=== PATIENT | male | born 1960 | race African-American/Black ===

== ENCOUNTER 2018-08-10 08:04 | Emergency (ER) | payer BC | END 2018-08-10 08:25 | disposition left against medical advice (07) | LOC: MW.ED 08:04 | DX: Z53.21 Procedure and treatment not carried out due to patient leaving prior to being seen by health care provider (principal) | CPT/HCPCS: 99282 ==

== ENCOUNTER 2018-09-27 17:26 | Emergency (ER) | payer BC ==
[2018-09-27] MEDS ORDERED: Sodium Chloride 0.9% 1,000 ML IV ONE (17:39)
[2018-09-27] MEDS ORDERED: cefTRIAXone 1 GM in Premix Bag 1 BAG IV ONE (17:42)
--- NOTE | 2018-09-27 17:42 | EDM.PDOC ---
ED HPI GENERAL MEDICAL PROBLEM - General Chief Complaint: Genitourinary Problem Stated Complaint: BLOOD IN CATH Time Seen by Provider: 09/27/18 17:37 - History of Present Illness INITIAL COMMENTS - FREE TEXT/NARRATIVE: HISTORY AND PHYSICAL: History of present illness: Patient's a 58-year-old black male with history of hypertension and urinary retention who has an indwelling Goldsmith since July is slated for reevaluation and TURP. Today he presents with gross hematuria in his U bag he denies fever chills nausea vomiting or pain he is on aspirin he denies any other antiplatelets or anticoagulants Review of systems: As per history of present illness and below otherwise all systems reviewed and negative. Past medical history: As per history of present illness and as reviewed below otherwise noncontributory. Surgical history: As per history of present illness and as reviewed below otherwise noncontributory. Social history: No reported history of drug or alcohol abuse. Family history: As per history of present illness and as reviewed below otherwise noncontributory. Physical exam: HEENT: Atraumatic, normocephalic, pupils reactive, negative for conjunctival pallor or scleral icterus, mucous membranes moist, throat clear, neck supple, nontender, trachea midline. Lungs: Clear to auscultation, breath sounds equal bilaterally, chest nontender. Heart: S1S2, regular, negative for clicks, rubs, or JVD. Abdomen: Soft, nondistended, nontender. Negative for masses or hepatosplenomegaly. Negative for costovertebral tenderness. Pelvis: Stable nontender. Genitourinary: Goldsmith in place with leg bag with gross hematuria noted Rectal: Deferred. Extremities: Atraumatic, negative for cords or calf pain. Neurovascular unremarkable. Neuro: Awake, alert, oriented. Cranial nerves II through XII unremarkable. Cerebellum unremarkable. Motor and sensory unremarkable throughout. Exam nonfocal. Diagnostics: CBC CMP PT/INR UA urine culture sensitivity Therapeutics: Bladder lavage to clear Rocephin 1 g IV Impression: #1 gross hematuria Definitive disposition and diagnosis as appropriate pending reevaluation and review of above. - Related Data Allergies Allergy/AdvReac Type Severity Reaction Status Date / Time No Known Allergies Allergy Verified 09/27/18 17:35 Home Meds: Home Meds Clopidogrel [Plavix] 75 mg PO DAILY 09/27/18 [History] Metoprolol Tartrate 25 mg PO DAILY 09/27/18 [History] Pantoprazole [ProTONIX] 40 mg PO DAILY 09/27/18 [History] atorvaSTATin [Lipitor] 40 mg PO DAILY 09/27/18 [History] ED ROS GENERAL - Review of Systems Review Of Systems: ROS reveals no pertinent complaints other than HPI. ED EXAM, GENERAL - Physical Exam Exam: See Below (See dictation) Course - Vital Signs Last Recorded V/S: Last Vital Signs Temp 36.8 C 09/27/18 17:37 Pulse 82 09/27/18 17:37 Resp 18 09/27/18 17:37 BP 184/112 H 09/27/18 17:37 Pulse Ox 95 09/27/18 17:37 - Orders/Labs/Meds Orders: Active Orders 24 hr Category Date Time Status CULTURE URINE [RM] Stat Lab 09/27/18 18:30 Received Labs: Laboratory Tests 09/27/18 09/27/18 09/27/18 Range/Units 17:50 17:50 17:50 WBC 7.33 (4.0-11.0) K/uL RBC 4.68 (4.50-5.90) M/uL Hgb 14.6 (13.0-17.0) g/dL Hct 43.7 (38.0-50.0) % MCV 93.4 (80.0-98.0) fL MCH 31.2 (27.0-32.0) pg MCHC 33.4 (31.0-37.0) g/dL RDW Std Deviation 44.0 (28.0-62.0) fl RDW Coeff of Dex 13 (11.0-15.0) % Plt Count 250 (150-400) K/uL MPV 10.70 (7.40-12.00) fL Neut % (Auto) 39.3 L (48.0-80.0) % Lymph % (Auto) 48.4 H (16.0-40.0) % Lares % (Auto) 6.1 (0.0-15.0) % Eos % (Auto) 5.7 (0.0-7.0) % Baso % (Auto) 0.5 (0.0-1.5) % Neut # (Auto) 2.9 (1.4-5.7) K/uL Lymph # (Auto) 3.6 H (0.6-2.4) K/uL [place] # (Auto) 0.5 (0.0-0.8) K/uL Eos # (Auto) 0.4 (0.0-0.7) K/uL Baso # (Auto) 0.0 (0.0-0.1) K/uL Nucleated RBC % 0.0 /100WBC Nucleated RBCs # 0 K/uL INR 1.00 Sodium 143 (136-148) mmol/L Potassium 3.6 (3.5-5.1) mmol/L Chloride 107 (98-107) mmol/L Carbon Dioxide 26.1 (21.0-32.0) mmol/L BUN 12 (7.0-18.0) mg/dL Creatinine 1.2 (0.8-1.3) mg/dL Est Cr Clr Drug Dosing 69.72 mL/min Estimated GFR (MDRD) > 60.0 ml/min Glucose 121 H (74-106) mg/dL Calcium 9.1 (8.5-10.1) mg/dL Total Bilirubin 0.6 (0.2-1.0) mg/dL AST 13 L (15-37) IU/L ALT 15 (14-63) IU/L Alkaline Phosphatase 131 H (46-116) U/L Total Protein 8.0 (6.4-8.2) g/dL Albumin 3.7 (3.4-5.0) g/dL Globulin 4.3 H (2.6-4.0) g/dL Albumin/Globulin Ratio 0.9 (0.9-1.6) Urine Color Urine Appearance Urine pH (5.0-8.0) Ur Specific [place] (1.001-1.035) Urine Protein (NEGATIVE) mg/dL Urine Glucose (UA) (NEGATIVE) mg/dL Urine Ketones (NEGATIVE) mg/dL Urine Occult Blood (NEGATIVE) Urine Nitrite (NEGATIVE) Urine Bilirubin (NEGATIVE) Urine Urobilinogen (<2.0) EU/dL Ur Leukocyte Esterase (NEGATIVE) Urine RBC (0-2/HPF) Urine WBC (0-5/HPF) Ur Epithelial Cells (NONE-FEW) Urine Bacteria (NEGATIVE) 09/27/18 Range/Units 18:30 WBC (4.0-11.0) K/uL RBC (4.50-5.90) M/uL Hgb (13.0-17.0) g/dL Hct (38.0-50.0) % MCV (80.0-98.0) fL MCH (27.0-32.0) pg MCHC (31.0-37.0) g/dL RDW Std Deviation (28.0-62.0) fl RDW Coeff of Dex (11.0-15.0) % Plt Count (150-400) K/uL MPV (7.40-12.00) fL Neut % (Auto) (48.0-80.0) % Lymph % (Auto) (16.0-40.0) % [place] % (Auto) (0.0-15.0) % Eos % (Auto) (0.0-7.0) % Baso % (Auto) (0.0-1.5) % Neut # (Auto) (1.4-5.7) K/uL Lymph # (Auto) (0.6-2.4) K/uL [place] # (Auto) (0.0-0.8) K/uL Eos # (Auto) (0.0-0.7) K/uL Baso # (Auto) (0.0-0.1) K/uL Nucleated RBC % /100WBC Nucleated RBCs # K/uL INR Sodium (136-148) mmol/L Potassium (3.5-5.1) mmol/L Chloride (98-107) mmol/L Carbon Dioxide (21.0-32.0) mmol/L BUN (7.0-18.0) mg/dL Creatinine (0.8-1.3) mg/dL Est Cr Clr Drug Dosing mL/min Estimated GFR (MDRD) ml/min Glucose (74-106) mg/dL Calcium (8.5-10.1) mg/dL Total Bilirubin (0.2-1.0) mg/dL AST (15-37) IU/L ALT (14-63) IU/L Alkaline Phosphatase (46-116) U/L Total Protein (6.4-8.2) g/dL Albumin (3.4-5.0) g/dL Globulin (2.6-4.0) g/dL Albumin/Globulin Ratio (0.9-1.6) Urine Color RED Urine Appearance CLOUDY Urine pH 6.5 (5.0-8.0) Ur Specific [place] 1.025 (1.001-1.035) Urine Protein 100 H (NEGATIVE) mg/dL Urine Glucose (UA) NEGATIVE (NEGATIVE) mg/dL Urine Ketones TRACE H (NEGATIVE) mg/dL Urine Occult Blood LARGE H (NEGATIVE) Urine Nitrite POSITIVE H (NEGATIVE) Urine Bilirubin NEGATIVE (NEGATIVE) Urine Urobilinogen 1.0 (<2.0) EU/dL Ur Leukocyte Esterase SMALL H (NEGATIVE) Urine RBC TOO NUMEROUS TO CT (0-2/HPF) Urine WBC 12-15 (0-5/HPF) Ur Epithelial Cells OCCASIONAL (NONE-FEW) Urine Bacteria 1+ H (NEGATIVE) Meds: Medications Discontinued Medications Generic Name Dose Route Start Last Admin Trade Name Freq PRN Reason Stop Dose Admin Sodium Chloride 1,000 mls @ 999 mls/hr 09/27/18 17:39 09/27/18 18:20 Normal Saline IV 09/27/18 18:39 999 mls/hr STAT ONE Administration Ceftriaxone Sodium/Dextrose 1 50 mls @ 100 mls/hr 09/27/18 17:42 09/27/18 18: 31 gm/ Premix IV 09/27/18 18:11 100 mls/hr ONETIME ONE Administration Departure - Departure Time of Disposition: 18:55 Disposition: Home, Self-Care 01 Condition: Good Clinical Impression: UTI, Urinary tract infectious disease - Discharge Information Referrals: PCP,Unknown [Primary Care Provider] - Forms: ED Department Discharge Additional Instructions: The following information is given to patients seen in the emergency department who are being discharged to home. This information is to outline your options for follow-up care. We provide all patients seen in our emergency department with a follow-up referral. The need for follow-up, as well as the timing and circumstances, are variable depending upon the specifics of your emergency department visit. If you don't have a primary care physician on staff, we will provide you with a referral. We always advise you to contact your personal physician following an emergency department visit to inform them of the circumstance of the visit and for follow-up with them and/or the need for any referrals to a consulting specialist. The emergency department will also refer you to a specialist when appropriate. This referral assures that you have the opportunity for followup care with a specialist. All of these measure are taken in an effort to provide you with optimal care, which includes your followup. Under all circumstances we always encourage you to contact your private physician who remains a resource for coordinating your care. When calling for followup care, please make the office aware that this follow-up is from your recent emergency room visit. If for any reason you are refused follow-up, please contact the [facility] emergency department at and asked to speak to the emergency department charge nurse. Goldsmith catheter leg bag care as directed Keflex as prescribed follow-up with urology call to schedule follow-up Saturday return as needed as discussed - My Orders Last 24 Hours: My Active Orders 09/27/18 18:30 CULTURE URINE [RM] Stat - Assessment/Plan Last 24 Hours: My Active Orders 09/27/18 18:30 CULTURE URINE [RM] Stat
[2018-09-27 18:20] LABS: CHLORIDE,CL 107 mmol/L (98-107); SODIUM,NA 143 mmol/L (136-148)
== END 2018-09-27 19:40 | disposition home or self-care (01) ==
LOC: MW.ED 17:26
DX: N39.0 Urinary tract infection, site not specified (principal); R31.0 Gross hematuria; Z79.899 Other long term (current) drug therapy
CPT/HCPCS: 36415; 80053; 81001; 85025; 85610; 87086; 96361; 96365; 99283; J0696; J7040; 87088; 87186

== ENCOUNTER 2018-11-03 20:58 | Inpatient (IN) | payer BC ==
[2018-11-03] MEDS ORDERED: Ketorolac 30 MG/ML SDV IVPUSH ONE (21:37)
[2018-11-03] MEDS ORDERED: Ondansetron 4 MG/2 ML SDV IVPUSH ONE (21:37)
[2018-11-03] MEDS ORDERED: Sodium Chloride 0.9% 1,000 ML IV ONE (21:37)
--- NOTE | 2018-11-03 21:38 | EDM.PDOC ---
<Gianni Gardner - Last Filed: 11/04/18 00:54> ED HPI GENERAL MEDICAL PROBLEM - General Chief Complaint: Abdominal Pain Stated Complaint: STOMACH PAIN Time Seen by Provider: 11/03/18 21:38 - History of Present Illness INITIAL COMMENTS - FREE TEXT/NARRATIVE: I've seen and examined the patient Patient does have some abdominal tenderness mildly protuberant Following CT and lab patient does have urinary tract infection and rectal bowel obstruction Plan is for admission IV fluids Reglan and Cipro - Related Data Allergies Allergy/AdvReac Type Severity Reaction Status Date / Time No Known Allergies Allergy Verified 11/03/18 21:33 Home Meds: Home Meds Metoprolol Tartrate 25 mg PO DAILY 09/27/18 [History] Pantoprazole [ProTONIX] 40 mg PO DAILY 09/27/18 [History] atorvaSTATin [Lipitor] 40 mg PO DAILY 09/27/18 [History] Ledipasvir/Sofosbuvir [Harvoni 90-400 mg Tablet] 90 - 400 mg PO DAILY 11/03/18 [ History] Lisinopril 10 mg PO DAILY 11/03/18 [History] ED ROS GENERAL - Review of Systems Review Of Systems: See Below ED EXAM, GI/ABD - Physical Exam Exam: See Below Course - Vital Signs Last Recorded V/S: Last Vital Signs Temp 98.7 F 11/04/18 07:30 Pulse 76 11/04/18 07:30 Resp 18 11/04/18 07:30 BP 157/89 H 11/04/18 07:30 Pulse Ox 95 11/04/18 07:30 - Orders/Labs/Meds Orders: Active Orders 24 hr Category Date Time Status CULTURE URINE [RM] Stat Lab 11/03/18 22:50 Received Ciprofloxacin in D5W [Cipro in D5W 400 MG/200 ML] 400 Med 11/04/18 01:00 Active mg Premix Bag 1 bag IV Q12H Medication Orders Hydromorphone HCl (Dilaudid) 1 mg IVPUSH Q2H PRN PRN Reason: Pain (severe 7-10) Last Admin: 11/04/18 06:25 Dose: 1 mg Ciprofloxacin/Dextrose 400 mg/ (Premix) 200 mls @ 200 mls/hr IV Q12H ABBIE Last Admin: 11/04/18 01:04 Dose: 200 mls/hr Sodium Chloride (Normal Saline) 1,000 mls @ 125 mls/hr IV ASDIRECTED ABBIE Last Admin: 11/04/18 08:45 Dose: 125 mls/hr Ondansetron HCl (Zofran) 4 mg IVPUSH Q3H PRN PRN Reason: Nausea/Vomiting Last Admin: 11/04/18 06:17 Dose: 4 mg Admin: 11/04/18 03:33 Dose: 4 mg Promethazine HCl (Phenergan) 25 mg IM Q6H PRN PRN Reason: Nausea/Vomiting Last Admin: 11/04/18 08:00 Dose: 25 mg Labs: Laboratory Tests 11/03/18 11/03/18 11/03/18 Range/Units 22:10 22:10 22:50 WBC 9.34 (4.0-11.0) K/uL RBC 4.59 (4.50-5.90) M/uL Hgb 14.7 (13.0-17.0) g/dL Hct 43.7 (38.0-50.0) % MCV 95.2 (80.0-98.0) fL MCH 32.0 (27.0-32.0) pg MCHC 33.6 (31.0-37.0) g/dL RDW Std Deviation 45.5 (28.0-62.0) fl RDW Coeff of Dex 13 (11.0-15.0) % Plt Count 275 (150-400) K/uL MPV 10.80 (7.40-12.00) fL Neut % (Auto) 58.8 (48.0-80.0) % Lymph % (Auto) 27.5 (16.0-40.0) % [place] % (Auto) 8.7 (0.0-15.0) % Eos % (Auto) 4.5 (0.0-7.0) % Baso % (Auto) 0.5 (0.0-1.5) % Neut # (Auto) 5.5 (1.4-5.7) K/uL Lymph # (Auto) 2.6 H (0.6-2.4) K/uL [place] # (Auto) 0.8 (0.0-0.8) K/uL Eos # (Auto) 0.4 (0.0-0.7) K/uL Baso # (Auto) 0.1 (0.0-0.1) K/uL Nucleated RBC % 0.0 /100WBC Nucleated RBCs # 0 K/uL Sodium 144 (136-148) mmol/L Potassium 4.2 (3.5-5.1) mmol/L Chloride 107 (98-107) mmol/L Carbon Dioxide 30.8 (21.0-32.0) mmol/L BUN 15 (7.0-18.0) mg/dL Creatinine 1.3 (0.8-1.3) mg/dL Est Cr Clr Drug Dosing 62.39 mL/min Estimated GFR (MDRD) > 60.0 ml/min Glucose 93 (74-106) mg/dL Calcium 8.9 (8.5-10.1) mg/dL Total Bilirubin 0.8 (0.2-1.0) mg/dL AST 22 (15-37) IU/L ALT 23 (14-63) IU/L Alkaline Phosphatase 110 (46-116) U/L Total Protein 7.7 (6.4-8.2) g/dL Albumin 3.7 (3.4-5.0) g/dL Globulin 4.0 (2.6-4.0) g/dL Albumin/Globulin Ratio 0.9 (0.9-1.6) Lipase 92 (73-393) U/L Urine Color YELLOW Urine Appearance SLT CLOUDY Urine pH 8.0 (5.0-8.0) Ur Specific [place] 1.015 (1.001-1.035) Urine Protein TRACE H (NEGATIVE) mg/dL Urine Glucose (UA) NEGATIVE (NEGATIVE) mg/dL Urine Ketones NEGATIVE (NEGATIVE) mg/dL Urine Occult Blood LARGE H (NEGATIVE) Urine Nitrite NEGATIVE (NEGATIVE) Urine Bilirubin NEGATIVE (NEGATIVE) Urine Urobilinogen 0.2 (<2.0) EU/dL Ur Leukocyte Esterase LARGE H (NEGATIVE) Urine RBC 45-50 (0-2/HPF) Urine WBC 50-60 (0-5/HPF) Ur Epithelial Cells FEW (NONE-FEW) Urine Bacteria 1+ H (NEGATIVE) Meds: Medications Generic Name Dose Route Start Last Admin Trade Name Freq PRN Reason Stop Dose Admin Hydromorphone HCl 1 mg 11/04/18 06:13 11/04/18 06:25 Dilaudid IVPUSH 1 mg Q2H PRN Administration Pain (severe 7-10) Ciprofloxacin/Dextrose 400 mg/ 200 mls @ 200 mls/hr 11/04/18 01:00 11/04/18 01:04 Premix IV 200 mls/hr Q12H ABBIE Administration Sodium Chloride 1,000 mls @ 125 mls/hr 11/04/18 02:30 11/04/18 08:45 Normal Saline IV 125 mls/hr ASDIRECTED ABBIE Administration Ondansetron HCl 4 mg 11/04/18 02:21 11/04/18 06:17 Zofran IVPUSH 4 mg Q3H PRN Administration Nausea/Vomiting Promethazine HCl 25 mg 11/04/18 06:14 11/04/18 08:00 Phenergan IM 25 mg Q6H PRN Administration Nausea/Vomiting Discontinued Medications Generic Name Dose Route Start Last Admin Trade Name Freq PRN Reason Stop Dose Admin Hydromorphone HCl 1 mg 11/03/18 21:40 11/03/18 22:13 Dilaudid IVPUSH 11/03/18 21:41 1 mg ONETIME ONE Administration Hydromorphone HCl 1 mg 11/04/18 01:08 11/04/18 01:15 Dilaudid IVPUSH 11/04/18 01:09 1 mg ONETIME ONE Administration Hydromorphone HCl 1 mg 11/04/18 02:21 11/04/18 03:31 Dilaudid IVPUSH 1 mg Q3H PRN Administration Pain (severe 7-10) Sodium Chloride 1,000 mls @ 999 mls/hr 11/03/18 21:37 11/03/18 22:13 Normal Saline IV 11/03/18 22:37 999 mls/hr STAT ONE Administration Sodium Chloride 1,000 mls @ 125 mls/hr 11/04/18 01:00 11/04/18 01:05 Normal Saline IV 125 mls/hr STAT ABBIE Administration Iopamidol 100 ml 11/03/18 23:47 11/03/18 23:48 Isovue Multipack-370 (76%) IVPUSH 11/03/18 23:48 100 ml ONETIME ONE Administration Ketorolac Tromethamine 30 mg 11/03/18 21:37 11/03/18 22:13 Toradol IVPUSH 11/03/18 21:38 30 mg ONETIME ONE Administration Metoclopramide HCl 10 mg 11/04/18 00:55 11/04/18 01:05 Reglan IV 11/04/18 00:56 10 mg ONETIME ONE Administration Ondansetron HCl 4 mg 11/03/18 21:37 11/03/18 22:13 Zofran IVPUSH 11/03/18 21:38 4 mg ONETIME ONE Administration Departure - Departure Time of Disposition: 00:54 Disposition: Refer to Observation Condition: Fair Clinical Impression: Bowel obstruction Qualifiers: Intestinal obstruction type: unspecified Intestinal obstruction extent: unspecified extent Qualified Code(s): K56.609 - Unspecified intestinal obstruction, unspecified as to partial versus complete obstruction UTI (urinary tract infection) Qualifiers: Urinary tract infection type: site unspecified Hematuria presence: without hematuria Qualified Code(s): N39.0 - Urinary tract infection, site not specified - Discharge Information - My Orders Last 24 Hours: My Active Orders 11/03/18 22:50 CULTURE URINE [RM] Stat - Assessment/Plan Last 24 Hours: My Active Orders 11/03/18 22:50 CULTURE URINE [RM] Stat <Elier Petersen E - Last Filed: 11/04/18 11:10> ED HPI GENERAL MEDICAL PROBLEM - General Source of Information: Reports: Patient History Limitations: Reports: No Limitations - History of Present Illness INITIAL COMMENTS - FREE TEXT/NARRATIVE: HISTORY AND PHYSICAL: History of present illness: Patient is a 58-year-old male who presents to the emergency room with complaints of generalized abdominal pain and nausea since 1730. He describes the pain as sharp and "comes in waves". He complains of nausea but no vomiting. Does not recall eating anything new or unusual. Patient denies any fever, chills, headache, change in vision, syncope or near syncope. Denies any chest pain, back pain, shortness of breath or cough. Denies any diarrhea, constipation or dysuria. Has not noted any blood in urine or stool. Patient has been eating and drinking appropriately. Patient has a history of appendectomy and hernia repair. Review of systems: As per history of present illness and below otherwise all systems reviewed and negative. Past medical history: As per history of present illness and as reviewed below otherwise noncontributory. Surgical history: As per history of present illness and as reviewed below otherwise noncontributory. Social history: See social history for further information Family history: As per history of present illness and as reviewed below otherwise noncontributory. Physical exam: General: Well-developed and well-nourished 58-year-old -[place] male. Alert and oriented. Nontoxic appearing and in no acute distress. HEENT: Atraumatic, normocephalic, pupils equal and reactive bilaterally, negative for conjunctival pallor or scleral icterus, mucous membranes moist, TMs normal bilaterally, throat clear, neck supple, nontender, trachea midline. No drooling or trismus noted. No meningeal signs. No hot potato voice noted. Lungs: Clear to auscultation, breath sounds equal bilaterally, chest nontender. Heart: S1S2, regular rate and rhythm without overt murmur Abdomen: Soft, nondistended, generalized abdominal pain in all 4 quadrants. Negative for masses. Negative for costovertebral tenderness. Pelvis: Stable nontender. Genitourinary: Deferred. Rectal: Deferred. Skin: Intact, warm, dry. No lesions or rashes noted. Extremities: Atraumatic, moves all extremities per self without difficulty or deficits, negative for cords or calf pain. Neurovascular unremarkable. Neuro: Awake, alert, oriented. Cranial nerves II through XII unremarkable. Cerebellum unremarkable. Motor and sensory unremarkable throughout. Exam nonfocal. Notes: Patient is agreeable to lab work and imaging. We'll give him fluids and pain medications for comfort. Dr Gardner was informed of this patient; will follow up on results. Diagnostics: CBC, CMP, UA, CT abdomen and pelvis, lipase, EKG Therapeutics: IV fluid, Zofran, Toradol, Dilaudid Definitive disposition and diagnosis as appropriate pending reevaluation and review of above. Middle Abdomen Pain Score (Numeric/FACES): 10 Past Medical History HEENT History: Reports: Impaired Vision Cardiovascular History: Reports: Hypertension, Stents, Other (See Below) Other Cardiovascular History: GA Gastrointestinal History: Reports: None Genitourinary History: Reports: Retention, Urinary - Infectious Disease History Infectious Disease History: Reports: Hepatitis C, Measles - Past Surgical History HEENT Surgical History: Reports: None GI Surgical History: Reports: Appendectomy, Hernia Repair/Other Male Surgical History: Reports: None Social & Family History - Family History Family Medical History: Noncontributory - Caffeine Use Caffeine Use: Reports: None Course - Orders/Labs/Meds Labs: Laboratory Tests 11/03/18 11/03/18 11/03/18 Range/Units 22:10 22:10 22:50 WBC 9.34 (4.0-11.0) K/uL RBC 4.59 (4.50-5.90) M/uL Hgb 14.7 (13.0-17.0) g/dL Hct 43.7 (38.0-50.0) % MCV 95.2 (80.0-98.0) fL MCH 32.0 (27.0-32.0) pg MCHC 33.6 (31.0-37.0) g/dL RDW Std Deviation 45.5 (28.0-62.0) fl RDW Coeff of Dex 13 (11.0-15.0) % Plt Count 275 (150-400) K/uL MPV 10.80 (7.40-12.00) fL Neut % (Auto) 58.8 (48.0-80.0) % Lymph % (Auto) 27.5 (16.0-40.0) % [place] % (Auto) 8.7 (0.0-15.0) % Eos % (Auto) 4.5 (0.0-7.0) % Baso % (Auto) 0.5 (0.0-1.5) % Neut # (Auto) 5.5 (1.4-5.7) K/uL Lymph # (Auto) 2.6 H (0.6-2.4) K/uL [place] # (Auto) 0.8 (0.0-0.8) K/uL Eos # (Auto) 0.4 (0.0-0.7) K/uL Baso # (Auto) 0.1 (0.0-0.1) K/uL Nucleated RBC % 0.0 /100WBC Nucleated RBCs # 0 K/uL Sodium 144 (136-148) mmol/L Potassium 4.2 (3.5-5.1) mmol/L Chloride 107 (98-107) mmol/L Carbon Dioxide 30.8 (21.0-32.0) mmol/L BUN 15 (7.0-18.0) mg/dL Creatinine 1.3 (0.8-1.3) mg/dL Est Cr Clr Drug Dosing 62.39 mL/min Estimated GFR (MDRD) > 60.0 ml/min Glucose 93 (74-106) mg/dL Calcium 8.9 (8.5-10.1) mg/dL Total Bilirubin 0.8 (0.2-1.0) mg/dL AST 22 (15-37) IU/L ALT 23 (14-63) IU/L Alkaline Phosphatase 110 (46-116) U/L Total Protein 7.7 (6.4-8.2) g/dL Albumin 3.7 (3.4-5.0) g/dL Globulin 4.0 (2.6-4.0) g/dL Albumin/Globulin Ratio 0.9 (0.9-1.6) Lipase 92 (73-393) U/L Urine Color YELLOW Urine Appearance SLT CLOUDY Urine pH 8.0 (5.0-8.0) Ur Specific [place] 1.015 (1.001-1.035) Urine Protein TRACE H (NEGATIVE) mg/dL Urine Glucose (UA) NEGATIVE (NEGATIVE) mg/dL Urine Ketones NEGATIVE (NEGATIVE) mg/dL Urine Occult Blood LARGE H (NEGATIVE) Urine Nitrite NEGATIVE (NEGATIVE) Urine Bilirubin NEGATIVE (NEGATIVE) Urine Urobilinogen 0.2 (<2.0) EU/dL Ur Leukocyte Esterase LARGE H (NEGATIVE) Urine RBC 45-50 (0-2/HPF) Urine WBC 50-60 (0-5/HPF) Ur Epithelial Cells FEW (NONE-FEW) Urine Bacteria 1+ H (NEGATIVE)
[2018-11-03] MEDS ORDERED: HYDROmorphone 1 MG/ML Syringe IVPUSH ONE (21:40)
[2018-11-03 22:40] LABS: CHLORIDE,CL 107 mmol/L (98-107); SODIUM,NA 144 mmol/L (136-148)
[2018-11-03] MEDS ORDERED: Iopamidol 755 MG/ML 500 ML Multipack Bottle IVPUSH ONE (23:47)
--- NOTE | 2018-11-04 00:51 | CT ---
INDICATION: Left lower abdominal pain TECHNIQUE: CT abdomen and pelvis acquired with IV contrast. 100 mL of Isovue 370 administered. COMPARISON: None available FINDINGS: Lower chest: Minor subsegmental atelectasis. Liver: Multiple small hepatic cysts and subcentimeter low-density lesions which are too small to characterize and may represent cysts as well. Spleen: Unremarkable. Pancreas: Unremarkable. Gallbladder and bile ducts: Slight stranding along the gallbladder wall which is not distended. A punctate calcification on image 35 of series 201 which may be related to the gallbladder neck or proximal cystic duct. Adrenal glands: Mild left adrenal thickening. Kidneys: No hydronephrosis. A subcentimeter left renal low-density lesion, statistically a cyst. GI tract: Borderline dilated fluid-filled small bowel segments with a transition point in the right abdomen on image 60. Wall thickening in a few right abdominal small bowel segments distal to the transition point, with associated mild mesenteric edema. Post appendectomy changes. Sigmoid diverticulosis without diverticulitis. Vascular structures: Arthrosclerotic changes. Lymph nodes: Several borderline and shotty subcentimeter periportal and portacaval lymph nodes, nonspecific. Miscellaneous: Small perihepatic, mesenteric and pelvic free fluid. No free air. Several small fat containing ventral hernias. A short segment of decompressed small bowel extending into a ventral hernia on image 89, without associated obstruction. An ovoid fat attenuation area in the right anterolateral lower abdominal wall musculature compatible with an intermuscular lipoma. Pelvic Organs: A Goldsmith catheter within the decompressed urinary bladder. Diffuse bladder wall thickening. A prominent prostate. Bones: A sclerotic lesion in the right ilium, small sclerotic foci in the posterior left ileum, and a sclerotic lesion in the right T10 pedicle, nonspecific. IMPRESSION: Findings consistent with partial or early small bowel obstruction with a transition point in the right abdomen. Wall thickening of a few small bowel segments distal to the transition point consistent with a nonspecific segmental enteritis. Slight stranding along the gallbladder wall with a punctate calcification in the region of the gallbladder neck or proximal cystic duct, although the gallbladder is not significantly distended. Correlate clinically and with sonography. Diffuse bladder wall thickening. Correlate with urinalysis for cystitis and recommend further urological evaluation. A prominent prostate. Small abdominal and pelvic free fluid. Several fat containing ventral hernias. A small bowel segment within a ventral hernia without associated obstruction. Several osseous sclerotic foci, nonspecific. Consider further evaluation with bone scan. Dictated by Josue Peng MD @ 11/04/2018 12:48:11 AM Please note that all CT scans at this facility use dose modulation, iterative reconstruction, and/or weight-based dosing when appropriate to reduce radiation dose to as low as reasonably achievable. Dictated by: Josue Peng MD @ 11/04/2018 00:50:09 (Electronically Signed)
[2018-11-04] MEDS ORDERED: Metoclopramide 10 MG/2 ML SDV IV ONE (00:55)
[2018-11-04] MEDS ORDERED: Sodium Chloride 0.9% 1,000 ML IV SCH (01:00)
[2018-11-04] MEDS: Ciprofloxacin in D5W 400 MG in Premix Bag 1 BAG IV SCH ×4 (01:04→12:45)
[2018-11-04] MEDS ORDERED: HYDROmorphone 1 MG/ML Syringe IVPUSH ONE (01:08)
[2018-11-04] MEDS ORDERED: HYDROmorphone 1 MG/ML Syringe IVPUSH PRN (02:21)
[2018-11-04] MEDS: Ondansetron 4 MG/2 ML SDV IVPUSH PRN ×2 (03:33→06:17)
[2018-11-04] MEDS: HYDROmorphone 1 MG/ML Syringe IVPUSH PRN ×2 (06:25→20:58)
[2018-11-04] MEDS: Promethazine 25 MG/ML SDV IM PRN (08:00)
[2018-11-04] MEDS: Sodium Chloride 0.9% 1,000 ML IV SCH ×2 (08:45→17:00)
[2018-11-04 09:48] LABS: CHLORIDE,CL 109 mmol/L (98-107); SODIUM,NA 147 mmol/L (136-148)
--- NOTE | 2018-11-04 09:59 | PCM.CONS ---
<Lili Byrne - Last Filed: 11/04/18 10:15> H&P History of Present Illness - General Date of Service: 11/04/18 Admit Problem/Dx: Admission Diagnosis/Problem Admission Diagnosis/Problem Partial bowel obstruction - History of Present Illness Initial Comments - Free Text/Narative: The patient is a 58 year old male with past medical history of HTN, CAD, urinary retention, and hepatitis C, who presented to the ER last night with abdominal pain and nausea. The pain started around 5 pm last night. He describes the pain as tightness in his mid abdomen that is intermittent and "comes in waves". He reports his last bowel movement was yesterday at 330 pm. He denies black/bloody stool. Since admission he reports he has not had a bowel movement or passed gas. This morning he developed vomiting and a NG tube was placed by the medical team. The patient has a large vertical midline scar on his abdomen which he states "Its from when they removed my appendix and had to take some of my intestines because my appendix was bleeding too much". He is also currently undergoing treatment for hepatitis C. Workup show far has not showed any leukocytosis or transaminitis. He has been afebrile. Urine did show signs of infection. He does have a indwelling catheter due to "prostate problems". CT of ab/pelvis showed partial/early SBO with transition point, wall thickening in a few areas of small bowel segments distal to transition point consistent with nonspecific enteritis. It also round stranding along the gallbladder with punctate calcifications, diffuse bladder wall thickening, and several fat containing ventral hernias with some bowel in the hernia. Middle Abdomen Pain Score (Numeric/FACES): 0 - Related Data Allergies/Adverse Reactions: Allergies Allergy/AdvReac Type Severity Reaction Status Date / Time No Known Allergies Allergy Verified 11/03/18 21:33 Home Medications: Home Meds Metoprolol Tartrate 25 mg PO DAILY 09/27/18 [History] Pantoprazole [ProTONIX] 40 mg PO DAILY 09/27/18 [History] atorvaSTATin [Lipitor] 40 mg PO DAILY 09/27/18 [History] Ledipasvir/Sofosbuvir [Harvoni 90-400 mg Tablet] 90 - 400 mg PO DAILY 11/03/18 [ History] Lisinopril 10 mg PO DAILY 11/03/18 [History] Past Medical History HEENT History: Reports: Impaired Vision Cardiovascular History: Reports: CAD, Hypertension, Stents, Other (See Below) Other Cardiovascular History: [place] Respiratory History: Reports: None Gastrointestinal History: Reports: None Genitourinary History: Reports: Retention, Urinary Musculoskeletal History: Reports: None Neurological History: Reports: None Psychiatric History: Reports: None Endocrine/Metabolic History: Reports: None Hematologic History: Reports: None Oncologic (Cancer) History: Reports: None - Infectious Disease History Infectious Disease History: Reports: Chicken Pox, Hepatitis C, Measles - Past Surgical History HEENT Surgical History: Reports: None GI Surgical History: Reports: Appendectomy, Hernia Repair/Other Male Surgical History: Reports: None Social & Family History - Family History Family Medical History: Noncontributory - Tobacco Use Smoking Status *Q: Light Tobacco Smoker Years of Tobacco use: 41 Packs/Tins Daily: 0.5 Second Hand Smoke Exposure: Yes - Caffeine Use Caffeine Use: Reports: Coffee, Soda, Tea - Recreational Drug Use Recreational Drug Use: No H&P Review of Systems - Review of Systems: Review Of Systems: See Below General: Reports: No Symptoms HEENT: Reports: No Symptoms Pulmonary: Reports: No Symptoms Cardiovascular: Reports: No Symptoms Gastrointestinal: Reports: Abdominal Pain, Nausea, Vomiting. Denies: Black Stool, Bloody Stool Musculoskeletal: Reports: No Symptoms Skin: Reports: No Symptoms Psychiatric: Reports: No Symptoms Neurological: Reports: No Symptoms Hematologic/Lymphatic: Reports: No Symptoms Immunologic: Reports: No Symptoms Exam - Exam Exam: See Below - Vital Signs Vital Signs: Last Vital Signs Temp 98.7 F 11/04/18 07:30 Pulse 76 11/04/18 07:30 Resp 18 11/04/18 07:30 BP 157/89 H 11/04/18 07:30 Pulse Ox 95 11/04/18 07:30 Weight: 101.406 kg - Exam General: Alert, Oriented, Cooperative HEENT: Conjunctiva Clear, EOMI, Posterior Pharynx Clear, Pupils Equal, Pupils Reactive Lungs: Clear to Auscultation, Normal Respiratory Effort Cardiovascular: Regular Rate, Regular Rhythm GI/Abdominal Exam: Non-Tender, Distended, Other. No: Guarding, Rigid, Rebound ( vertical midline scar with hernia at umbilicus) Extremities: No Pedal Edema Skin: Warm, Dry, Intact Neuro Extensive - Mental Status: Alert, Oriented x3 Psychiatric: Alert, Normal Affect, Normal Mood - Patient Data Lab Results Last 24 hrs: Laboratory Results - last 24 hr 11/03/18 11/03/18 11/03/18 Range/Units 22:10 22:10 22:50 WBC 9.34 (4.0-11.0) K/uL RBC 4.59 (4.50-5.90) M/uL Hgb 14.7 (13.0-17.0) g/dL Hct 43.7 (38.0-50.0) % MCV 95.2 (80.0-98.0) fL MCH 32.0 (27.0-32.0) pg MCHC 33.6 (31.0-37.0) g/dL RDW Std Deviation 45.5 (28.0-62.0) fl RDW Coeff of Dex 13 (11.0-15.0) % Plt Count 275 (150-400) K/uL MPV 10.80 (7.40-12.00) fL Neut % (Auto) 58.8 (48.0-80.0) % Lymph % (Auto) 27.5 (16.0-40.0) % Clark % (Auto) 8.7 (0.0-15.0) % Eos % (Auto) 4.5 (0.0-7.0) % Baso % (Auto) 0.5 (0.0-1.5) % Neut # (Auto) 5.5 (1.4-5.7) K/uL Lymph # (Auto) 2.6 H (0.6-2.4) K/uL Clark # (Auto) 0.8 (0.0-0.8) K/uL Eos # (Auto) 0.4 (0.0-0.7) K/uL Baso # (Auto) 0.1 (0.0-0.1) K/uL Nucleated RBC % 0.0 /100WBC Nucleated RBCs # 0 K/uL Sodium 144 (136-148) mmol/L Potassium 4.2 (3.5-5.1) mmol/L Chloride 107 (98-107) mmol/L Carbon Dioxide 30.8 (21.0-32.0) mmol/L BUN 15 (7.0-18.0) mg/dL Creatinine 1.3 (0.8-1.3) mg/dL Est Cr Clr Drug Dosing 62.39 mL/min Estimated GFR (MDRD) > 60.0 ml/min Glucose 93 (74-106) mg/dL Calcium 8.9 (8.5-10.1) mg/dL Total Bilirubin 0.8 (0.2-1.0) mg/dL AST 22 (15-37) IU/L ALT 23 (14-63) IU/L Alkaline Phosphatase 110 (46-116) U/L Total Protein 7.7 (6.4-8.2) g/dL Albumin 3.7 (3.4-5.0) g/dL Globulin 4.0 (2.6-4.0) g/dL Albumin/Globulin Ratio 0.9 (0.9-1.6) Lipase 92 (73-393) U/L Urine Color YELLOW Urine Appearance SLT CLOUDY Urine pH 8.0 (5.0-8.0) Ur Specific [place] 1.015 (1.001-1.035) Urine Protein TRACE H (NEGATIVE) mg/dL Urine Glucose (UA) NEGATIVE (NEGATIVE) mg/dL Urine Ketones NEGATIVE (NEGATIVE) mg/dL Urine Occult Blood LARGE H (NEGATIVE) Urine Nitrite NEGATIVE (NEGATIVE) Urine Bilirubin NEGATIVE (NEGATIVE) Urine Urobilinogen 0.2 (<2.0) EU/dL Ur Leukocyte Esterase LARGE H (NEGATIVE) Urine RBC 45-50 (0-2/HPF) Urine WBC 50-60 (0-5/HPF) Ur Epithelial Cells FEW (NONE-FEW) Urine Bacteria 1+ H (NEGATIVE) 11/04/18 11/04/18 Range/Units 08:58 08:58 WBC 9.18 (4.0-11.0) K/uL RBC 4.57 (4.50-5.90) M/uL Hgb 14.1 (13.0-17.0) g/dL Hct 43.6 (38.0-50.0) % MCV 95.4 (80.0-98.0) fL MCH 30.9 (27.0-32.0) pg MCHC 32.3 (31.0-37.0) g/dL RDW Std Deviation 45.8 (28.0-62.0) fl RDW Coeff of Dex 13 (11.0-15.0) % Plt Count 266 (150-400) K/uL MPV 10.80 (7.40-12.00) fL Neut % (Auto) 76.1 (48.0-80.0) % Lymph % (Auto) 16.9 (16.0-40.0) % Clark % (Auto) 6.4 (0.0-15.0) % Eos % (Auto) 0.4 (0.0-7.0) % Baso % (Auto) 0.2 (0.0-1.5) % Neut # (Auto) 7.0 H (1.4-5.7) K/uL Lymph # (Auto) 1.6 (0.6-2.4) K/uL Clark # (Auto) 0.6 (0.0-0.8) K/uL Eos # (Auto) 0.0 (0.0-0.7) K/uL Baso # (Auto) 0.0 (0.0-0.1) K/uL Nucleated RBC % 0.0 /100WBC Nucleated RBCs # 0 K/uL Sodium 147 (136-148) mmol/L Potassium 3.6 (3.5-5.1) mmol/L Chloride 109 H (98-107) mmol/L Carbon Dioxide 30.4 (21.0-32.0) mmol/L BUN 11 (7.0-18.0) mg/dL Creatinine 1.3 (0.8-1.3) mg/dL Est Cr Clr Drug Dosing 62.39 mL/min Estimated GFR (MDRD) > 60.0 ml/min Glucose 133 H (74-106) mg/dL Calcium 8.7 (8.5-10.1) mg/dL Total Bilirubin 0.8 (0.2-1.0) mg/dL AST 16 (15-37) IU/L ALT 22 (14-63) IU/L Alkaline Phosphatase 108 (46-116) U/L Total Protein 7.3 (6.4-8.2) g/dL Albumin 3.5 (3.4-5.0) g/dL Globulin 3.8 (2.6-4.0) g/dL Albumin/Globulin Ratio 0.9 (0.9-1.6) Lipase (73-393) U/L Urine Color Urine Appearance Urine pH (5.0-8.0) Ur Specific [place] (1.001-1.035) Urine Protein (NEGATIVE) mg/dL Urine Glucose (UA) (NEGATIVE) mg/dL Urine Ketones (NEGATIVE) mg/dL Urine Occult Blood (NEGATIVE) Urine Nitrite (NEGATIVE) Urine Bilirubin (NEGATIVE) Urine Urobilinogen (<2.0) EU/dL Ur Leukocyte Esterase (NEGATIVE) Urine RBC (0-2/HPF) Urine WBC (0-5/HPF) Ur Epithelial Cells (NONE-FEW) Urine Bacteria (NEGATIVE) Result Diagrams: 11/04/18 08:58 11/04/18 08:58 Consult PN Assessment/Plan Procedures: Procedures COMPLETE CBC W/AUTO DIFF WBC (09/27/18) COMPREHEN METABOLIC PANEL (09/27/18) EMERGENCY DEPT VISIT (09/27/18) EMERGENCY DEPT VISIT (08/10/18) HYDRATE IV INFUSION ADD-ON (09/27/18) PROTHROMBIN TIME (09/27/18) ROUTINE VENIPUNCTURE (09/27/18) THER/PROPH/DIAG IV INF INIT (09/27/18) URINALYSIS AUTO W/SCOPE (09/27/18) URINE CULTURE/COLONY COUNT (09/27/18) Problem List Initiated/Reviewed/Updated: Yes Plan: The patient is a 58 M with abdominal pain and nausea/vomiting and CT findings concerning for SBO, stranding around the gallbladder, and ventral hernia. 1. possible SBO- keep patient NPO, NG tube placed, medicate for pain and nausea/ vomiting, fluid resuscitation. No need for surgery at this time. 2. Gallbladder stranding- no white count or elevation in LFTs, no fever, no RUQ pain- treat with broad spectrum antibiotics and get RUQ ultrasound 3. Ventral hernia-No evidence of incarceration. No surgery at this time. 4. UTI: likely secondary to chronic indwelling catheter. Treatment per primary team Will follow up on results of US and continue to monitor patient. If patient declines clinically will need transfer give his co-morbidities. <Precious Cristina - Last Filed: 11/04/18 12:22> H&P History of Present Illness - General Admit Problem/Dx: Admission Diagnosis/Problem Admission Diagnosis/Problem Partial bowel obstruction Exam - Vital Signs Vital Signs: Last Vital Signs Temp 37.8 C 11/04/18 11:22 Pulse 96 11/04/18 11:22 Resp 18 11/04/18 11:22 BP 158/105 H 11/04/18 11:22 Pulse Ox 93 L 11/04/18 11:22 - Patient Data Lab Results Last 24 hrs: Laboratory Results - last 24 hr 11/03/18 11/03/18 11/03/18 Range/Units 22:10 22:10 22:50 WBC 9.34 (4.0-11.0) K/uL RBC 4.59 (4.50-5.90) M/uL Hgb 14.7 (13.0-17.0) g/dL Hct 43.7 (38.0-50.0) % MCV 95.2 (80.0-98.0) fL MCH 32.0 (27.0-32.0) pg MCHC 33.6 (31.0-37.0) g/dL RDW Std Deviation 45.5 (28.0-62.0) fl RDW Coeff of Dex 13 (11.0-15.0) % Plt Count 275 (150-400) K/uL MPV 10.80 (7.40-12.00) fL Neut % (Auto) 58.8 (48.0-80.0) % Lymph % (Auto) 27.5 (16.0-40.0) % Clark % (Auto) 8.7 (0.0-15.0) % Eos % (Auto) 4.5 (0.0-7.0) % Baso % (Auto) 0.5 (0.0-1.5) % Neut # (Auto) 5.5 (1.4-5.7) K/uL Lymph # (Auto) 2.6 H (0.6-2.4) K/uL Clark # (Auto) 0.8 (0.0-0.8) K/uL Eos # (Auto) 0.4 (0.0-0.7) K/uL Baso # (Auto) 0.1 (0.0-0.1) K/uL Nucleated RBC % 0.0 /100WBC Nucleated RBCs # 0 K/uL Sodium 144 (136-148) mmol/L Potassium 4.2 (3.5-5.1) mmol/L Chloride 107 (98-107) mmol/L Carbon Dioxide 30.8 (21.0-32.0) mmol/L BUN 15 (7.0-18.0) mg/dL Creatinine 1.3 (0.8-1.3) mg/dL Est Cr Clr Drug Dosing 62.39 mL/min Estimated GFR (MDRD) > 60.0 ml/min Glucose 93 (74-106) mg/dL POC Glucose (60-110) mg/dL Calcium 8.9 (8.5-10.1) mg/dL Total Bilirubin 0.8 (0.2-1.0) mg/dL AST 22 (15-37) IU/L ALT 23 (14-63) IU/L Alkaline Phosphatase 110 (46-116) U/L Total Protein 7.7 (6.4-8.2) g/dL Albumin 3.7 (3.4-5.0) g/dL Globulin 4.0 (2.6-4.0) g/dL Albumin/Globulin Ratio 0.9 (0.9-1.6) Lipase 92 (73-393) U/L Urine Color YELLOW Urine Appearance SLT CLOUDY Urine pH 8.0 (5.0-8.0) Ur Specific [place] 1.015 (1.001-1.035) Urine Protein TRACE H (NEGATIVE) mg/dL Urine Glucose (UA) NEGATIVE (NEGATIVE) mg/dL Urine Ketones NEGATIVE (NEGATIVE) mg/dL Urine Occult Blood LARGE H (NEGATIVE) Urine Nitrite NEGATIVE (NEGATIVE) Urine Bilirubin NEGATIVE (NEGATIVE) Urine Urobilinogen 0.2 (<2.0) EU/dL Ur Leukocyte Esterase LARGE H (NEGATIVE) Urine RBC 45-50 (0-2/HPF) Urine WBC 50-60 (0-5/HPF) Ur Epithelial Cells FEW (NONE-FEW) Urine Bacteria 1+ H (NEGATIVE) 11/04/18 11/04/18 11/04/18 Range/Units 08:58 08:58 11:17 WBC 9.18 (4.0-11.0) K/uL RBC 4.57 (4.50-5.90) M/uL Hgb 14.1 (13.0-17.0) g/dL Hct 43.6 (38.0-50.0) % MCV 95.4 (80.0-98.0) fL MCH 30.9 (27.0-32.0) pg MCHC 32.3 (31.0-37.0) g/dL RDW Std Deviation 45.8 (28.0-62.0) fl RDW Coeff of Dex 13 (11.0-15.0) % Plt Count 266 (150-400) K/uL MPV 10.80 (7.40-12.00) fL Neut % (Auto) 76.1 (48.0-80.0) % Lymph % (Auto) 16.9 (16.0-40.0) % Clark % (Auto) 6.4 (0.0-15.0) % Eos % (Auto) 0.4 (0.0-7.0) % Baso % (Auto) 0.2 (0.0-1.5) % Neut # (Auto) 7.0 H (1.4-5.7) K/uL Lymph # (Auto) 1.6 (0.6-2.4) K/uL Clark # (Auto) 0.6 (0.0-0.8) K/uL Eos # (Auto) 0.0 (0.0-0.7) K/uL Baso # (Auto) 0.0 (0.0-0.1) K/uL Nucleated RBC % 0.0 /100WBC Nucleated RBCs # 0 K/uL Sodium 147 (136-148) mmol/L Potassium 3.6 (3.5-5.1) mmol/L Chloride 109 H (98-107) mmol/L Carbon Dioxide 30.4 (21.0-32.0) mmol/L BUN 11 (7.0-18.0) mg/dL Creatinine 1.3 (0.8-1.3) mg/dL Est Cr Clr Drug Dosing 62.39 mL/min Estimated GFR (MDRD) > 60.0 ml/min Glucose 133 H (74-106) mg/dL POC Glucose 134 H (60-110) mg/dL Calcium 8.7 (8.5-10.1) mg/dL Total Bilirubin 0.8 (0.2-1.0) mg/dL AST 16 (15-37) IU/L ALT 22 (14-63) IU/L Alkaline Phosphatase 108 (46-116) U/L Total Protein 7.3 (6.4-8.2) g/dL Albumin 3.5 (3.4-5.0) g/dL Globulin 3.8 (2.6-4.0) g/dL Albumin/Globulin Ratio 0.9 (0.9-1.6) Lipase (73-393) U/L Urine Color Urine Appearance Urine pH (5.0-8.0) Ur Specific [place] (1.001-1.035) Urine Protein (NEGATIVE) mg/dL Urine Glucose (UA) (NEGATIVE) mg/dL Urine Ketones (NEGATIVE) mg/dL Urine Occult Blood (NEGATIVE) Urine Nitrite (NEGATIVE) Urine Bilirubin (NEGATIVE) Urine Urobilinogen (<2.0) EU/dL Ur Leukocyte Esterase (NEGATIVE) Urine RBC (0-2/HPF) Urine WBC (0-5/HPF) Ur Epithelial Cells (NONE-FEW) Urine Bacteria (NEGATIVE) Result Diagrams: 11/04/18 08:58 11/04/18 08:58 Consult PN Assessment/Plan Procedures: Procedures COMPLETE CBC W/AUTO DIFF WBC (09/27/18) COMPREHEN METABOLIC PANEL (09/27/18) EMERGENCY DEPT VISIT (09/27/18) EMERGENCY DEPT VISIT (08/10/18) HYDRATE IV INFUSION ADD-ON (09/27/18) PROTHROMBIN TIME (09/27/18) ROUTINE VENIPUNCTURE (09/27/18) THER/PROPH/DIAG IV INF INIT (09/27/18) URINALYSIS AUTO W/SCOPE (09/27/18) URINE CULTURE/COLONY COUNT (09/27/18)
[2018-11-04] MEDS: Pantoprazole 40 MG Vial IV SCH (12:45)
[2018-11-04] MEDS: Heparin Sodium 5,000 Units/ML Vial SUBCUT SCH ×2 (12:48→20:58)
--- NOTE | 2018-11-04 12:48 | PCM.HP ---
H&P History of Present Illness - General Date of Service: 11/04/18 Admit Problem/Dx: Admission Diagnosis/Problem Admission Diagnosis/Problem Partial bowel obstruction - History of Present Illness Initial Comments - Free Text/Narative: 58 yo male with pmh of CAD who presents to the ED with complaints of abdominal pain. The pain started at 5:00 pm last night. Patient reports his last bowel movement was yesterday. He reports nausea and vomiting. The pain is diffuse in all four quadrants. He denies any fevers, chills or blood in stool. Patient has history of BPH with chronic indwelling velazquez. CT scan performed in ED was suggestive of partial small bowel obstruction with section of bowel wall thickening distal to transition suggestive of enteritis. There was stranding along the gallbladder wall and bladder wall thickening. Middle Abdomen Pain Score (Numeric/FACES): 10 - Related Data Allergies/Adverse Reactions: Allergies Allergy/AdvReac Type Severity Reaction Status Date / Time No Known Allergies Allergy Verified 11/03/18 21:33 Home Medications: Home Meds Metoprolol Tartrate 25 mg PO DAILY 09/27/18 [History] Pantoprazole [ProTONIX] 40 mg PO DAILY 09/27/18 [History] atorvaSTATin [Lipitor] 40 mg PO DAILY 09/27/18 [History] Ledipasvir/Sofosbuvir [Harvoni 90-400 mg Tablet] 90 - 400 mg PO DAILY 11/03/18 [ History] Lisinopril 10 mg PO DAILY 11/03/18 [History] Past Medical History HEENT History: Reports: Impaired Vision Cardiovascular History: Reports: Hypertension, Stents, Other (See Below) Other Cardiovascular History: [place] Respiratory History: Reports: None Gastrointestinal History: Reports: None, Hepatitis Other Gastrointestinal History: Hepatitis C on Harvoni Genitourinary History: Reports: Retention, Urinary Musculoskeletal History: Reports: None Neurological History: Reports: None Psychiatric History: Reports: None Endocrine/Metabolic History: Reports: None Hematologic History: Reports: None Oncologic (Cancer) History: Reports: None - Infectious Disease History Infectious Disease History: Reports: Hepatitis C, Measles - Past Surgical History HEENT Surgical History: Reports: None GI Surgical History: Reports: Appendectomy, Hernia Repair/Other Male Surgical History: Reports: None Social & Family History - Family History Family Medical History: Noncontributory - Tobacco Use Smoking Status *Q: Light Tobacco Smoker Years of Tobacco use: 41 Packs/Tins Daily: 0.5 Second Hand Smoke Exposure: Yes - Caffeine Use Caffeine Use: Reports: None - Recreational Drug Use Recreational Drug Use: No H&P Review of Systems - Review of Systems: Review Of Systems: ROS reveals no pertinent complaints other than HPI. Exam - Exam Exam: See Below - Vital Signs Vital Signs: Last Vital Signs Temp 37.8 C 11/04/18 11:22 Pulse 96 11/04/18 11:22 Resp 18 11/04/18 11:22 BP 158/105 H 11/04/18 11:22 Pulse Ox 93 L 11/04/18 11:22 Weight: 101.406 kg - Exam General: Alert, Oriented HEENT: Mucosa Moist & [place] Lungs: Clear to Auscultation, Normal Respiratory Effort Cardiovascular: Regular Rate, Regular Rhythm GI/Abdominal Exam: Soft, Distended, Tender. No: Guarding, Rigid Extremities: Non-Tender, No Pedal Edema Skin: Warm, Dry, Intact Neurological: Cranial Nerves Intact, Reflexes Equal Bilateral Neuro Extensive - Mental Status: Alert - Patient Data Lab Results Last 24 hrs: Laboratory Results - last 24 hr 11/03/18 11/03/18 11/03/18 Range/Units 22:10 22:10 22:50 WBC 9.34 (4.0-11.0) K/uL RBC 4.59 (4.50-5.90) M/uL Hgb 14.7 (13.0-17.0) g/dL Hct 43.7 (38.0-50.0) % MCV 95.2 (80.0-98.0) fL MCH 32.0 (27.0-32.0) pg MCHC 33.6 (31.0-37.0) g/dL RDW Std Deviation 45.5 (28.0-62.0) fl RDW Coeff of Dex 13 (11.0-15.0) % Plt Count 275 (150-400) K/uL MPV 10.80 (7.40-12.00) fL Neut % (Auto) 58.8 (48.0-80.0) % Lymph % (Auto) 27.5 (16.0-40.0) % [place] % (Auto) 8.7 (0.0-15.0) % Eos % (Auto) 4.5 (0.0-7.0) % Baso % (Auto) 0.5 (0.0-1.5) % Neut # (Auto) 5.5 (1.4-5.7) K/uL Lymph # (Auto) 2.6 H (0.6-2.4) K/uL [place] # (Auto) 0.8 (0.0-0.8) K/uL Eos # (Auto) 0.4 (0.0-0.7) K/uL Baso # (Auto) 0.1 (0.0-0.1) K/uL Nucleated RBC % 0.0 /100WBC Nucleated RBCs # 0 K/uL Sodium 144 (136-148) mmol/L Potassium 4.2 (3.5-5.1) mmol/L Chloride 107 (98-107) mmol/L Carbon Dioxide 30.8 (21.0-32.0) mmol/L BUN 15 (7.0-18.0) mg/dL Creatinine 1.3 (0.8-1.3) mg/dL Est Cr Clr Drug Dosing 62.39 mL/min Estimated GFR (MDRD) > 60.0 ml/min Glucose 93 (74-106) mg/dL POC Glucose (60-110) mg/dL Calcium 8.9 (8.5-10.1) mg/dL Total Bilirubin 0.8 (0.2-1.0) mg/dL AST 22 (15-37) IU/L ALT 23 (14-63) IU/L Alkaline Phosphatase 110 (46-116) U/L Total Protein 7.7 (6.4-8.2) g/dL Albumin 3.7 (3.4-5.0) g/dL Globulin 4.0 (2.6-4.0) g/dL Albumin/Globulin Ratio 0.9 (0.9-1.6) Lipase 92 (73-393) U/L Urine Color YELLOW Urine Appearance SLT CLOUDY Urine pH 8.0 (5.0-8.0) Ur Specific [place] 1.015 (1.001-1.035) Urine Protein TRACE H (NEGATIVE) mg/dL Urine Glucose (UA) NEGATIVE (NEGATIVE) mg/dL Urine Ketones NEGATIVE (NEGATIVE) mg/dL Urine Occult Blood LARGE H (NEGATIVE) Urine Nitrite NEGATIVE (NEGATIVE) Urine Bilirubin NEGATIVE (NEGATIVE) Urine Urobilinogen 0.2 (<2.0) EU/dL Ur Leukocyte Esterase LARGE H (NEGATIVE) Urine RBC 45-50 (0-2/HPF) Urine WBC 50-60 (0-5/HPF) Ur Epithelial Cells FEW (NONE-FEW) Urine Bacteria 1+ H (NEGATIVE) 11/04/18 11/04/18 11/04/18 Range/Units 08:58 08:58 11:17 WBC 9.18 (4.0-11.0) K/uL RBC 4.57 (4.50-5.90) M/uL Hgb 14.1 (13.0-17.0) g/dL Hct 43.6 (38.0-50.0) % MCV 95.4 (80.0-98.0) fL MCH 30.9 (27.0-32.0) pg MCHC 32.3 (31.0-37.0) g/dL RDW Std Deviation 45.8 (28.0-62.0) fl RDW Coeff of Dex 13 (11.0-15.0) % Plt Count 266 (150-400) K/uL MPV 10.80 (7.40-12.00) fL Neut % (Auto) 76.1 (48.0-80.0) % Lymph % (Auto) 16.9 (16.0-40.0) % [place] % (Auto) 6.4 (0.0-15.0) % Eos % (Auto) 0.4 (0.0-7.0) % Baso % (Auto) 0.2 (0.0-1.5) % Neut # (Auto) 7.0 H (1.4-5.7) K/uL Lymph # (Auto) 1.6 (0.6-2.4) K/uL [place] # (Auto) 0.6 (0.0-0.8) K/uL Eos # (Auto) 0.0 (0.0-0.7) K/uL Baso # (Auto) 0.0 (0.0-0.1) K/uL Nucleated RBC % 0.0 /100WBC Nucleated RBCs # 0 K/uL Sodium 147 (136-148) mmol/L Potassium 3.6 (3.5-5.1) mmol/L Chloride 109 H (98-107) mmol/L Carbon Dioxide 30.4 (21.0-32.0) mmol/L BUN 11 (7.0-18.0) mg/dL Creatinine 1.3 (0.8-1.3) mg/dL Est Cr Clr Drug Dosing 62.39 mL/min Estimated GFR (MDRD) > 60.0 ml/min Glucose 133 H (74-106) mg/dL POC Glucose 134 H (60-110) mg/dL Calcium 8.7 (8.5-10.1) mg/dL Total Bilirubin 0.8 (0.2-1.0) mg/dL AST 16 (15-37) IU/L ALT 22 (14-63) IU/L Alkaline Phosphatase 108 (46-116) U/L Total Protein 7.3 (6.4-8.2) g/dL Albumin 3.5 (3.4-5.0) g/dL Globulin 3.8 (2.6-4.0) g/dL Albumin/Globulin Ratio 0.9 (0.9-1.6) Lipase (73-393) U/L Urine Color Urine Appearance Urine pH (5.0-8.0) Ur Specific [place] (1.001-1.035) Urine Protein (NEGATIVE) mg/dL Urine Glucose (UA) (NEGATIVE) mg/dL Urine Ketones (NEGATIVE) mg/dL Urine Occult Blood (NEGATIVE) Urine Nitrite (NEGATIVE) Urine Bilirubin (NEGATIVE) Urine Urobilinogen (<2.0) EU/dL Ur Leukocyte Esterase (NEGATIVE) Urine RBC (0-2/HPF) Urine WBC (0-5/HPF) Ur Epithelial Cells (NONE-FEW) Urine Bacteria (NEGATIVE) Result Diagrams: 11/04/18 08:58 11/04/18 08:58 Problem List Initiated/Reviewed/Updated: Yes Orders Last 24hrs: Active Orders 24 hr Category Date Time Status Admission Status [Patient Status] [ADT] Stat ADT 11/04/18 01:05 Active Antiembolic Devices [RC] PER UNIT ROUTINE Care 11/04/18 12:37 Ordered Gastrointestinal Tube Mgmt [RC] ASDIRECTED Care 11/04/18 08:40 Active Notify Provider Consults [RC] ASDIRECTED Care 11/04/18 09:09 Active Oxygen Therapy [RC] PRN Care 11/04/18 12:36 Ordered Up ad Keisha [RC] ASDIRECTED Care 11/04/18 12:36 Ordered VTE/DVT Education [RC] PER UNIT ROUTINE Care 11/04/18 12:36 Ordered Vital Signs [RC] Q4H Care 11/04/18 12:36 Ordered Consult to Physician [CONS] Routine Cons 11/04/18 09:09 Active NPO Now [Nothing per Oral Now Diet] [DIET] Diet 11/04/18 Breakfast Active Abdomen Ltd [US] Urgent Exams 11/04/18 08:42 Taken CBC WITH AUTO DIFF [HEME] AM Lab 11/05/18 05:11 Ordered COMPREHENSIVE METABOLIC PN,CMP [CHEM] AM Lab 11/05/18 05:11 Ordered CULTURE URINE [RM] Stat Lab 11/03/18 22:50 Received Ciprofloxacin in D5W [Cipro in D5W 400 MG/200 ML] 400 Med 11/04/18 01:00 Active mg Premix Bag 1 bag IV Q12H HYDROmorphone [Dilaudid] Med 11/04/18 06:13 Active 1 mg IVPUSH Q2H PRN Heparin Sodium Med 11/04/18 12:45 Ordered 5,000 units SUBCUT Q8H Ondansetron [Zofran] Med 11/04/18 02:21 Active 4 mg IVPUSH Q3H PRN Pantoprazole [ProTONIX IV] Med 11/04/18 12:45 Ordered 40 mg IV Q24H Promethazine [Phenergan] Med 11/04/18 06:14 Active 25 mg IM Q6H PRN Sodium Chloride 0.9% [Normal Saline] 1,000 ml Med 11/04/18 02:30 Active IV ASDIRECTED metroNIDAZOLE/Normal Saline [Flagyl 500 MG in NS 100 ML Med 11/04/18 18:00 Ordered ] 500 mg Premix Bag 1 bag IV QID Sequential Compression Device [OM.PC] Per Unit Routine Oth 11/04/18 12:36 Ordered Resuscitation Status Routine Resus Stat 11/04/18 12:36 Ordered Medication Orders Heparin Sodium (Porcine) (Heparin Sodium) 5,000 units SUBCUT Q8H ABBIE Hydromorphone HCl (Dilaudid) 1 mg IVPUSH Q2H PRN PRN Reason: Pain (severe 7-10) Last Admin: 11/04/18 06:25 Dose: 1 mg Ciprofloxacin/Dextrose 400 mg/ (Premix) 200 mls @ 200 mls/hr IV Q12H [facility] Last Admin: 11/04/18 12:45 Dose: 200 mls/hr Infusion: 11/04/18 02:04 Dose: 200 mls/hr Admin: 11/04/18 01:04 Dose: 200 mls/hr Sodium Chloride (Normal Saline) 1,000 mls @ 125 mls/hr IV ASDIRECTED [facility] Last Admin: 11/04/18 08:45 Dose: 125 mls/hr Metronidazole 500 mg/ Premix 100 mls @ 100 mls/hr IV QID ABBIE Ondansetron HCl (Zofran) 4 mg IVPUSH Q3H PRN PRN Reason: Nausea/Vomiting Last Admin: 11/04/18 06:17 Dose: 4 mg Admin: 11/04/18 03:33 Dose: 4 mg Pantoprazole Sodium (Protonix Iv) 40 mg IV Q24H [facility] Last Admin: 11/04/18 12:45 Dose: 40 mg Promethazine HCl (Phenergan) 25 mg IM Q6H PRN PRN Reason: Nausea/Vomiting Last Admin: 11/04/18 08:00 Dose: 25 mg Assessment/Plan Comment:: 58 yo male admitted for partial small bowel obstruction. We will place NG tube and treat with bowel rest. He is on Ciprofloxacin for UTI and Velazquez has been replaced. Will check RUQ ultrasound regarding gallbladder stranding seen on CT. We will call Dr. Cristina for general surgery consult.
--- NOTE | 2018-11-04 13:09 | US ---
EXAMINATION: Right upper quadrant ultrasound HISTORY: Gallbladder COMPARISON: CT dated 11/03/2018 TECHNIQUE: Grayscale, color Doppler imaging obtained of the right upper quadrant. FINDINGS: The visualized pancreas appears normal. The liver contains a few well-circumscribed cysts otherwise is normal in contour and echotexture. There is a trace perihepatic fluid. The gallbladder wall thickness is borderline 3 mm. There is a small stone within the neck of the gallbladder. No notable pericholecystic fluid. Right kidney measures 9.6 cm [id number] without evidence of hydronephrosis. Sonographic Burrows sign is not reported. IMPRESSION: 1. Cholelithiasis without definite cholecystitis. 2. Trace perihepatic fluid with a few small hepatic cysts.
[2018-11-04] MEDS: LORazepam 2 MG/ML SDV IVPUSH PRN (15:33)
[2018-11-04] MEDS: metroNIDAZOLE/Normal Saline 500 MG in Premix Bag 1 BAG IV SCH ×2 (18:10→23:24)
[2018-11-05] MEDS: Ciprofloxacin in D5W 400 MG in Premix Bag 1 BAG IV SCH ×4 (00:37→13:45)
[2018-11-05] MEDS: HYDROmorphone 1 MG/ML Syringe IVPUSH PRN ×4 (00:37→20:12)
[2018-11-05] MEDS: Sodium Chloride 0.9% 1,000 ML IV SCH (00:38)
[2018-11-05] MEDS: Heparin Sodium 5,000 Units/ML Vial SUBCUT SCH ×3 (04:37→21:32)
[2018-11-05 05:46] LABS: CHLORIDE,CL 110 mmol/L (98-107); SODIUM,NA 147 mmol/L (136-148)
[2018-11-05] MEDS: metroNIDAZOLE/Normal Saline 500 MG in Premix Bag 1 BAG IV SCH ×3 (05:56→17:45)
[2018-11-05] MEDS ORDERED: Dextrose 5%-0.45% NaCl 1,000 ML IV SCH (06:15)
[2018-11-05] MEDS: D5 1/2 NS w/ 20 mEq/L KCl 1,000 ML IV SCH ×2 (09:15→20:52)
--- NOTE | 2018-11-05 09:23 | CR ---
EXAMINATION: Abdomen HISTORY: NG tube placement COMPARISON: CT dated 11/03/2018 TECHNIQUE: AP views of the abdomen FINDINGS: There is an NG tube noted with tip and side-port within the stomach. There are a few dilated loops of small bowel noted measuring up to 4 cm. No definite abnormal calcification. Likely a bone island within the right ilium. IMPRESSION: 1. NG tube noted with tip in the stomach. 2. Mildly prominent loops of small bowel, possibly representing a bowel obstruction.
--- NOTE | 2018-11-05 09:35 | PCM.CONSN ---
- General Info Date of Service: 11/05/18 Subjective Update: Patient is extremely frustrated and upset this morning. He does not want to be in the hospital. It is extremely anxiety provoking. It sounds like there were no acute events overnight physiologically. Vitals have been stable and he has been afebrile. He believes he had one episode of flatus last evening. He has had no bowel movements. His NG has put out over 1 L of bilious appearing fluid since placement. Abdominal x-ray was performed this morning and showed good placement of the tube. - Review of Systems General: Reports: No Symptoms Pulmonary: Reports: No Symptoms Cardiovascular: Reports: No Symptoms Psychiatric: Reports: Mood Lability, Anxiety, Agitation - Patient Data Vitals - Most Recent: Last Vital Signs Temp 37.3 C 11/05/18 08:00 Pulse 83 11/05/18 08:00 Resp 20 11/05/18 08:00 BP 170/96 H 11/05/18 08:00 Pulse Ox 92 L 11/05/18 08:00 Weight - Most Recent: 101.406 kg I&O - Last 24 Hours: Intake & Output 11/04/18 11/05/18 11/05/18 22:59 06:59 14:59 Intake Total 960 1332 430 Output Total 1400 Balance 960 -68 430 Lab Results Last 24 Hours: Laboratory Results - last 24 hr 11/04/18 11/04/18 11/04/18 Range/Units 08:58 11:17 16:09 WBC (4.0-11.0) K/uL RBC (4.50-5.90) M/uL Hgb (13.0-17.0) g/dL Hct (38.0-50.0) % MCV (80.0-98.0) fL MCH (27.0-32.0) pg MCHC (31.0-37.0) g/dL RDW Std Deviation (28.0-62.0) fl RDW Coeff of Dex (11.0-15.0) % Plt Count (150-400) K/uL MPV (7.40-12.00) fL Neut % (Auto) (48.0-80.0) % Lymph % (Auto) (16.0-40.0) % [place] % (Auto) (0.0-15.0) % Eos % (Auto) (0.0-7.0) % Baso % (Auto) (0.0-1.5) % Neut # (Auto) (1.4-5.7) K/uL Lymph # (Auto) (0.6-2.4) K/uL [place] # (Auto) (0.0-0.8) K/uL Eos # (Auto) (0.0-0.7) K/uL Baso # (Auto) (0.0-0.1) K/uL Nucleated RBC % /100WBC Nucleated RBCs # K/uL Sodium 147 (136-148) mmol/L Potassium 3.6 (3.5-5.1) mmol/L Chloride 109 H (98-107) mmol/L Carbon Dioxide 30.4 (21.0-32.0) mmol/L BUN 11 (7.0-18.0) mg/dL Creatinine 1.3 (0.8-1.3) mg/dL Est Cr Clr Drug Dosing 62.39 mL/min Estimated GFR (MDRD) > 60.0 ml/min Glucose 133 H (74-106) mg/dL POC Glucose 134 H 101 (60-110) mg/dL Calcium 8.7 (8.5-10.1) mg/dL Magnesium (1.8-2.4) mg/dL Total Bilirubin 0.8 (0.2-1.0) mg/dL AST 16 (15-37) IU/L ALT 22 (14-63) IU/L Alkaline Phosphatase 108 (46-116) U/L Total Protein 7.3 (6.4-8.2) g/dL Albumin 3.5 (3.4-5.0) g/dL Globulin 3.8 (2.6-4.0) g/dL Albumin/Globulin Ratio 0.9 (0.9-1.6) 11/05/18 11/05/18 11/05/18 Range/Units 00:32 04:35 04:35 WBC 9.56 (4.0-11.0) K/uL RBC 4.52 (4.50-5.90) M/uL Hgb 13.8 (13.0-17.0) g/dL Hct 43.7 (38.0-50.0) % MCV 96.7 (80.0-98.0) fL MCH 30.5 (27.0-32.0) pg MCHC 31.6 (31.0-37.0) g/dL RDW Std Deviation 47.4 (28.0-62.0) fl RDW Coeff of Dex 13 (11.0-15.0) % Plt Count 280 (150-400) K/uL MPV 11.10 (7.40-12.00) fL Neut % (Auto) 58.2 (48.0-80.0) % Lymph % (Auto) 28.8 (16.0-40.0) % [place] % (Auto) 11.7 (0.0-15.0) % Eos % (Auto) 1.0 (0.0-7.0) % Baso % (Auto) 0.3 (0.0-1.5) % Neut # (Auto) 5.6 (1.4-5.7) K/uL Lymph # (Auto) 2.8 H (0.6-2.4) K/uL [place] # (Auto) 1.1 H (0.0-0.8) K/uL Eos # (Auto) 0.1 (0.0-0.7) K/uL Baso # (Auto) 0.0 (0.0-0.1) K/uL Nucleated RBC % 0.0 /100WBC Nucleated RBCs # 0 K/uL Sodium 147 (136-148) mmol/L Potassium 3.1 L (3.5-5.1) mmol/L Chloride 110 H (98-107) mmol/L Carbon Dioxide 29.8 (21.0-32.0) mmol/L BUN 10 (7.0-18.0) mg/dL Creatinine 1.3 (0.8-1.3) mg/dL Est Cr Clr Drug Dosing 62.39 mL/min Estimated GFR (MDRD) > 60.0 ml/min Glucose 94 (74-106) mg/dL POC Glucose 102 (60-110) mg/dL Calcium 8.5 (8.5-10.1) mg/dL Magnesium (1.8-2.4) mg/dL Total Bilirubin 1.0 (0.2-1.0) mg/dL AST 15 (15-37) IU/L ALT 18 (14-63) IU/L Alkaline Phosphatase 103 (46-116) U/L Total Protein 6.8 (6.4-8.2) g/dL Albumin 3.1 L (3.4-5.0) g/dL Globulin 3.7 (2.6-4.0) g/dL Albumin/Globulin Ratio 0.8 L (0.9-1.6) 11/05/18 Range/Units 08:45 WBC (4.0-11.0) K/uL RBC (4.50-5.90) M/uL Hgb (13.0-17.0) g/dL Hct (38.0-50.0) % MCV (80.0-98.0) fL MCH (27.0-32.0) pg MCHC (31.0-37.0) g/dL RDW Std Deviation (28.0-62.0) fl RDW Coeff of Dex (11.0-15.0) % Plt Count (150-400) K/uL MPV (7.40-12.00) fL Neut % (Auto) (48.0-80.0) % Lymph % (Auto) (16.0-40.0) % [place] % (Auto) (0.0-15.0) % Eos % (Auto) (0.0-7.0) % Baso % (Auto) (0.0-1.5) % Neut # (Auto) (1.4-5.7) K/uL Lymph # (Auto) (0.6-2.4) K/uL [place] # (Auto) (0.0-0.8) K/uL Eos # (Auto) (0.0-0.7) K/uL Baso # (Auto) (0.0-0.1) K/uL Nucleated RBC % /100WBC Nucleated RBCs # K/uL Sodium (136-148) mmol/L Potassium (3.5-5.1) mmol/L Chloride (98-107) mmol/L Carbon Dioxide (21.0-32.0) mmol/L BUN (7.0-18.0) mg/dL Creatinine (0.8-1.3) mg/dL Est Cr Clr Drug Dosing mL/min Estimated GFR (MDRD) ml/min Glucose (74-106) mg/dL POC Glucose (60-110) mg/dL Calcium (8.5-10.1) mg/dL Magnesium 1.8 (1.8-2.4) mg/dL Total Bilirubin (0.2-1.0) mg/dL AST (15-37) IU/L ALT (14-63) IU/L Alkaline Phosphatase (46-116) U/L Total Protein (6.4-8.2) g/dL Albumin (3.4-5.0) g/dL Globulin (2.6-4.0) g/dL Albumin/Globulin Ratio (0.9-1.6) Med Orders - Current: Current Medications Heparin Sodium (Porcine) (Heparin Sodium) 5,000 units SUBCUT Q8H [facility] Last Admin: 11/05/18 04:37 Dose: 5,000 units Hydromorphone HCl (Dilaudid) 1 mg IVPUSH Q2H PRN PRN Reason: Pain (severe 7-10) Last Admin: 11/05/18 06:46 Dose: 1 mg Ciprofloxacin/Dextrose 400 mg/ (Premix) 200 mls @ 200 mls/hr IV Q12H [facility] Last Admin: 11/05/18 00:37 Dose: 200 mls/hr Metronidazole 500 mg/ Premix 100 mls @ 100 mls/hr IV QID [facility] Last Admin: 11/05/18 05:56 Dose: 100 mls/hr Potassium Chloride/Dextrose/Sod Cl (D5 1/2 Ns W/ 20 Meq/L Kcl) 1,000 mls @ 125 mls/hr IV ASDIRECTED [facility] Last Admin: 11/05/18 09:15 Dose: 125 mls/hr Lorazepam (Ativan) 1 mg IVPUSH Q8H PRN PRN Reason: Anxiety Last Admin: 11/04/18 15:33 Dose: 1 mg Ondansetron HCl (Zofran) 4 mg IVPUSH Q3H PRN PRN Reason: Nausea/Vomiting Last Admin: 11/04/18 06:17 Dose: 4 mg Pantoprazole Sodium (Protonix Iv) 40 mg IV Q24H [facility] Last Admin: 11/04/18 12:45 Dose: 40 mg Promethazine HCl (Phenergan) 25 mg IM Q6H PRN PRN Reason: Nausea/Vomiting Last Admin: 11/04/18 08:00 Dose: 25 mg Discontinued Medications Hydromorphone HCl (Dilaudid) 1 mg IVPUSH ONETIME ONE Stop: 11/03/18 21:41 Last Admin: 11/03/18 22:13 Dose: 1 mg Hydromorphone HCl (Dilaudid) 1 mg IVPUSH ONETIME ONE Stop: 11/04/18 01:09 Last Admin: 11/04/18 01:15 Dose: 1 mg Hydromorphone HCl (Dilaudid) 1 mg IVPUSH Q3H PRN PRN Reason: Pain (severe 7-10) Last Admin: 11/04/18 03:31 Dose: 1 mg Sodium Chloride (Normal Saline) 1,000 mls @ 999 mls/hr IV STAT ONE Stop: 11/03/18 22:37 Last Admin: 11/03/18 22:13 Dose: 999 mls/hr Sodium Chloride (Normal Saline) 1,000 mls @ 125 mls/hr IV STAT [facility]BIE Last Admin: 11/04/18 01:05 Dose: 125 mls/hr Sodium Chloride (Normal Saline) 1,000 mls @ 125 mls/hr IV ASDIRECTED [facility] Last Admin: 11/05/18 00:38 Dose: 125 mls/hr Dextrose/Sodium Chloride (Dextrose 5%-1/2 Ns) 1,000 mls @ 125 mls/hr IV ASDIRECTED [facility] Last Admin: 11/05/18 06:45 Dose: 125 mls/hr Iopamidol (Isovue Multipack-370 (76%)) 100 ml IVPUSH ONETIME ONE Stop: 11/03/18 23:48 Last Admin: 11/03/18 23:48 Dose: 100 ml Ketorolac Tromethamine (Toradol) 30 mg IVPUSH ONETIME ONE Stop: 11/03/18 21:38 Last Admin: 11/03/18 22:13 Dose: 30 mg Metoclopramide HCl (Reglan) 10 mg IV ONETIME ONE Stop: 11/04/18 00:56 Last Admin: 11/04/18 01:05 Dose: 10 mg Ondansetron HCl (Zofran) 4 mg IVPUSH ONETIME ONE Stop: 11/03/18 21:38 Last Admin: 11/03/18 22:13 Dose: 4 mg - Exam General: Alert, Oriented Lungs: Normal Respiratory Effort Cardiovascular: Regular Rate GI/Abdominal Exam: Soft, Non-Tender, No Mass, Distended (mild) Psy/Mental Status: Labile Mood, Anxious Consult PN Assessment/Plan Procedures: Procedures COMPLETE CBC W/AUTO DIFF WBC (09/27/18) COMPREHEN METABOLIC PANEL (09/27/18) EMERGENCY DEPT VISIT (09/27/18) EMERGENCY DEPT VISIT (08/10/18) HYDRATE IV INFUSION ADD-ON (09/27/18) PROTHROMBIN TIME (09/27/18) ROUTINE VENIPUNCTURE (09/27/18) THER/PROPH/DIAG IV INF INIT (09/27/18) URINALYSIS AUTO W/SCOPE (09/27/18) URINE CULTURE/COLONY COUNT (09/27/18) Problem List Initiated/Reviewed/Updated: Yes
[2018-11-05] MEDS ORDERED: Phenol 1.4% Oral Spray 177 ML Bottle MUCMEM PRN (10:32)
--- NOTE | 2018-11-05 11:07 | PCM.PN ---
- General Info Date of Service: 11/05/18 - Review of Systems Systems Review Comment:: abdominal pain improving, one liter output from NG overnight. - Patient Data Vitals - Most Recent: Last Vital Signs Temp 37.3 C 11/05/18 08:00 Pulse 83 11/05/18 08:00 Resp 20 11/05/18 08:00 BP 170/96 H 11/05/18 08:00 Pulse Ox 92 L 11/05/18 08:00 Weight - Most Recent: 101.406 kg I&O - Last 24 Hours: Intake & Output 11/04/18 11/05/18 11/05/18 22:59 06:59 14:59 Intake Total 960 1332 430 Output Total 1400 Balance 960 -68 430 Lab Results Last 24 Hours: Laboratory Results - last 24 hr 11/04/18 11/04/18 11/05/18 Range/Units 11:17 16:09 00:32 WBC (4.0-11.0) K/uL RBC (4.50-5.90) M/uL Hgb (13.0-17.0) g/dL Hct (38.0-50.0) % MCV (80.0-98.0) fL MCH (27.0-32.0) pg MCHC (31.0-37.0) g/dL RDW Std Deviation (28.0-62.0) fl RDW Coeff of Dex (11.0-15.0) % Plt Count (150-400) K/uL MPV (7.40-12.00) fL Neut % (Auto) (48.0-80.0) % Lymph % (Auto) (16.0-40.0) % [place] % (Auto) (0.0-15.0) % Eos % (Auto) (0.0-7.0) % Baso % (Auto) (0.0-1.5) % Neut # (Auto) (1.4-5.7) K/uL Lymph # (Auto) (0.6-2.4) K/uL [place] # (Auto) (0.0-0.8) K/uL Eos # (Auto) (0.0-0.7) K/uL Baso # (Auto) (0.0-0.1) K/uL Nucleated RBC % /100WBC Nucleated RBCs # K/uL Sodium (136-148) mmol/L Potassium (3.5-5.1) mmol/L Chloride (98-107) mmol/L Carbon Dioxide (21.0-32.0) mmol/L BUN (7.0-18.0) mg/dL Creatinine (0.8-1.3) mg/dL Est Cr Clr Drug Dosing mL/min Estimated GFR (MDRD) ml/min Glucose (74-106) mg/dL POC Glucose 134 H 101 102 (60-110) mg/dL Calcium (8.5-10.1) mg/dL Magnesium (1.8-2.4) mg/dL Total Bilirubin (0.2-1.0) mg/dL AST (15-37) IU/L ALT (14-63) IU/L Alkaline Phosphatase (46-116) U/L Total Protein (6.4-8.2) g/dL Albumin (3.4-5.0) g/dL Globulin (2.6-4.0) g/dL Albumin/Globulin Ratio (0.9-1.6) 11/05/18 11/05/18 11/05/18 Range/Units 04:35 04:35 08:45 WBC 9.56 (4.0-11.0) K/uL RBC 4.52 (4.50-5.90) M/uL Hgb 13.8 (13.0-17.0) g/dL Hct 43.7 (38.0-50.0) % MCV 96.7 (80.0-98.0) fL MCH 30.5 (27.0-32.0) pg MCHC 31.6 (31.0-37.0) g/dL RDW Std Deviation 47.4 (28.0-62.0) fl RDW Coeff of Dex 13 (11.0-15.0) % Plt Count 280 (150-400) K/uL MPV 11.10 (7.40-12.00) fL Neut % (Auto) 58.2 (48.0-80.0) % Lymph % (Auto) 28.8 (16.0-40.0) % [place] % (Auto) 11.7 (0.0-15.0) % Eos % (Auto) 1.0 (0.0-7.0) % Baso % (Auto) 0.3 (0.0-1.5) % Neut # (Auto) 5.6 (1.4-5.7) K/uL Lymph # (Auto) 2.8 H (0.6-2.4) K/uL [place] # (Auto) 1.1 H (0.0-0.8) K/uL Eos # (Auto) 0.1 (0.0-0.7) K/uL Baso # (Auto) 0.0 (0.0-0.1) K/uL Nucleated RBC % 0.0 /100WBC Nucleated RBCs # 0 K/uL Sodium 147 (136-148) mmol/L Potassium 3.1 L (3.5-5.1) mmol/L Chloride 110 H (98-107) mmol/L Carbon Dioxide 29.8 (21.0-32.0) mmol/L BUN 10 (7.0-18.0) mg/dL Creatinine 1.3 (0.8-1.3) mg/dL Est Cr Clr Drug Dosing 62.39 mL/min Estimated GFR (MDRD) > 60.0 ml/min Glucose 94 (74-106) mg/dL POC Glucose (60-110) mg/dL Calcium 8.5 (8.5-10.1) mg/dL Magnesium 1.8 (1.8-2.4) mg/dL Total Bilirubin 1.0 (0.2-1.0) mg/dL AST 15 (15-37) IU/L ALT 18 (14-63) IU/L Alkaline Phosphatase 103 (46-116) U/L Total Protein 6.8 (6.4-8.2) g/dL Albumin 3.1 L (3.4-5.0) g/dL Globulin 3.7 (2.6-4.0) g/dL Albumin/Globulin Ratio 0.8 L (0.9-1.6) Med Orders - Current: Current Medications Heparin Sodium (Porcine) (Heparin Sodium) 5,000 units SUBCUT Q8H [facility] Last Admin: 11/05/18 04:37 Dose: 5,000 units Hydromorphone HCl (Dilaudid) 1 mg IVPUSH Q2H PRN PRN Reason: Pain (severe 7-10) Last Admin: 11/05/18 06:46 Dose: 1 mg Ciprofloxacin/Dextrose 400 mg/ (Premix) 200 mls @ 200 mls/hr IV Q12H [facility] Last Admin: 11/05/18 00:37 Dose: 200 mls/hr Metronidazole 500 mg/ Premix 100 mls @ 100 mls/hr IV QID [facility] Last Admin: 11/05/18 05:56 Dose: 100 mls/hr Potassium Chloride/Dextrose/Sod Cl (D5 1/2 Ns W/ 20 Meq/L Kcl) 1,000 mls @ 125 mls/hr IV ASDIRECTED [facility] Last Admin: 11/05/18 09:15 Dose: 125 mls/hr Lorazepam (Ativan) 1 mg IVPUSH Q8H PRN PRN Reason: Anxiety Last Admin: 11/04/18 15:33 Dose: 1 mg Ondansetron HCl (Zofran) 4 mg IVPUSH Q3H PRN PRN Reason: Nausea/Vomiting Last Admin: 11/04/18 06:17 Dose: 4 mg Pantoprazole Sodium (Protonix Iv) 40 mg IV Q24H [facility] Last Admin: 11/04/18 12:45 Dose: 40 mg Phenol/Menthol (Chloraseptic Throat [place]) 1 ml MUCMEM Q2H PRN PRN Reason: Sore Throat Promethazine HCl (Phenergan) 25 mg IM Q6H PRN PRN Reason: Nausea/Vomiting Last Admin: 11/04/18 08:00 Dose: 25 mg Discontinued Medications Hydromorphone HCl (Dilaudid) 1 mg IVPUSH ONETIME ONE Stop: 11/03/18 21:41 Last Admin: 11/03/18 22:13 Dose: 1 mg Hydromorphone HCl (Dilaudid) 1 mg IVPUSH ONETIME ONE Stop: 11/04/18 01:09 Last Admin: 11/04/18 01:15 Dose: 1 mg Hydromorphone HCl (Dilaudid) 1 mg IVPUSH Q3H PRN PRN Reason: Pain (severe 7-10) Last Admin: 11/04/18 03:31 Dose: 1 mg Sodium Chloride (Normal Saline) 1,000 mls @ 999 mls/hr IV STAT ONE Stop: 11/03/18 22:37 Last Admin: 11/03/18 22:13 Dose: 999 mls/hr Sodium Chloride (Normal Saline) 1,000 mls @ 125 mls/hr IV STAT [facility] Last Admin: 11/04/18 01:05 Dose: 125 mls/hr Sodium Chloride (Normal Saline) 1,000 mls @ 125 mls/hr IV ASDIRECTED [facility] Last Admin: 11/05/18 00:38 Dose: 125 mls/hr Dextrose/Sodium Chloride (Dextrose 5%-1/2 Ns) 1,000 mls @ 125 mls/hr IV ASDIRECTED [facility] Last Admin: 11/05/18 06:45 Dose: 125 mls/hr Iopamidol (Isovue Multipack-370 (76%)) 100 ml IVPUSH ONETIME ONE Stop: 11/03/18 23:48 Last Admin: 11/03/18 23:48 Dose: 100 ml Ketorolac Tromethamine (Toradol) 30 mg IVPUSH ONETIME ONE Stop: 11/03/18 21:38 Last Admin: 11/03/18 22:13 Dose: 30 mg Metoclopramide HCl (Reglan) 10 mg IV ONETIME ONE Stop: 11/04/18 00:56 Last Admin: 11/04/18 01:05 Dose: 10 mg Ondansetron HCl (Zofran) 4 mg IVPUSH ONETIME ONE Stop: 11/03/18 21:38 Last Admin: 11/03/18 22:13 Dose: 4 mg - Exam General: Alert, Oriented Lungs: Clear to Auscultation, Normal Respiratory Effort Cardiovascular: Regular Rate, Regular Rhythm GI/Abdominal Exam: Soft, Non-Tender, Distended Extremities: Normal Inspection, Non-Tender Skin: Warm, Dry, Intact - Problem List Review Problem List Initiated/Reviewed/Updated: Yes - My Orders Last 24 Hours: My Active Orders 11/04/18 12:36 Oxygen Therapy [RC] PRN Up ad Keisha [RC] ASDIRECTED VTE/DVT Education [RC] PER UNIT ROUTINE Vital Signs [RC] Q4H Sequential Compression Device [OM.PC] Per Unit Routine Resuscitation Status Routine 11/04/18 12:37 Antiembolic Devices [RC] PER UNIT ROUTINE 11/04/18 12:45 Heparin Sodium 5,000 units SUBCUT Q8H Pantoprazole [ProTONIX IV] 40 mg IV Q24H 11/04/18 18:00 metroNIDAZOLE/Normal Saline [Flagyl 500 MG in NS 100 ML] 500 mg Premix Bag 1 bag IV QID - Plan Plan:: 58 yo male admitted for partial small bowel obstruction. We will continue NG tube and bowel rest. He is on Ciprofloxacin for UTI and Goldsmith has been replaced.
[2018-11-05] MEDS: LORazepam 2 MG/ML SDV IVPUSH PRN (11:30)
[2018-11-05] MEDS: Pantoprazole 40 MG Vial IV SCH (12:37)
[2018-11-05] MEDS: Enalaprilat 1.25 MG/ML SDV IVPUSH SCH ×2 (15:13→20:15)
[2018-11-06] MEDS: metroNIDAZOLE/Normal Saline 500 MG in Premix Bag 1 BAG IV SCH ×5 (00:17→23:38)
[2018-11-06] MEDS: Ciprofloxacin in D5W 400 MG in Premix Bag 1 BAG IV SCH ×4 (01:19→14:10)
[2018-11-06] MEDS: HYDROmorphone 1 MG/ML Syringe IVPUSH PRN ×3 (02:25→16:39)
[2018-11-06] MEDS: Enalaprilat 1.25 MG/ML SDV IVPUSH SCH ×4 (02:30→20:17)
[2018-11-06] MEDS: Heparin Sodium 5,000 Units/ML Vial SUBCUT SCH ×3 (04:46→20:14)
[2018-11-06] MEDS: LORazepam 2 MG/ML SDV IVPUSH PRN (04:53)
[2018-11-06 06:47] LABS: CHLORIDE,CL 106 mmol/L (98-107); SODIUM,NA 141 mmol/L (136-148)
[2018-11-06] MEDS ORDERED: Potassium Chloride 40 MEQ in Sodium Chloride 0.9% 480 ML IV ONE (08:15)
--- NOTE | 2018-11-06 10:18 | PCM.PN ---
- General Info Date of Service: 11/06/18 - Review of Systems Systems Review Comment:: no nausea or vomiting overnight. - Patient Data Vitals - Most Recent: Last Vital Signs Temp 37.4 C 11/06/18 09:03 Pulse 73 11/06/18 09:03 Resp 16 11/06/18 08:00 BP 192/111 H 11/06/18 09:03 Pulse Ox 90 L 11/06/18 08:00 Weight - Most Recent: 101.406 kg I&O - Last 24 Hours: Intake & Output 11/05/18 11/06/18 11/06/18 22:59 06:59 14:59 Intake Total 743 1254 Output Total 1200 1100 Balance -457 154 Lab Results Last 24 Hours: Laboratory Results - last 24 hr 11/05/18 11/05/18 11/05/18 Range/Units 11:51 18:20 23:59 WBC (4.0-11.0) K/uL RBC (4.50-5.90) M/uL Hgb (13.0-17.0) g/dL Hct (38.0-50.0) % MCV (80.0-98.0) fL MCH (27.0-32.0) pg MCHC (31.0-37.0) g/dL RDW Std Deviation (28.0-62.0) fl RDW Coeff of Dex (11.0-15.0) % Plt Count (150-400) K/uL MPV (7.40-12.00) fL Neut % (Auto) (48.0-80.0) % Lymph % (Auto) (16.0-40.0) % [place] % (Auto) (0.0-15.0) % Eos % (Auto) (0.0-7.0) % Baso % (Auto) (0.0-1.5) % Neut # (Auto) (1.4-5.7) K/uL Lymph # (Auto) (0.6-2.4) K/uL [place] # (Auto) (0.0-0.8) K/uL Eos # (Auto) (0.0-0.7) K/uL Baso # (Auto) (0.0-0.1) K/uL Nucleated RBC % /100WBC Nucleated RBCs # K/uL Sodium (136-148) mmol/L Potassium (3.5-5.1) mmol/L Chloride (98-107) mmol/L Carbon Dioxide (21.0-32.0) mmol/L BUN (7.0-18.0) mg/dL Creatinine (0.8-1.3) mg/dL Est Cr Clr Drug Dosing mL/min Estimated GFR (MDRD) ml/min Glucose (74-106) mg/dL POC Glucose 121 H 100 126 H (60-110) mg/dL Calcium (8.5-10.1) mg/dL Magnesium (1.8-2.4) mg/dL 11/06/18 11/06/18 11/06/18 Range/Units 05:46 05:46 05:46 WBC 9.03 (4.0-11.0) K/uL RBC 4.23 L (4.50-5.90) M/uL Hgb 13.1 (13.0-17.0) g/dL Hct 40.1 (38.0-50.0) % MCV 94.8 (80.0-98.0) fL MCH 31.0 (27.0-32.0) pg MCHC 32.7 (31.0-37.0) g/dL RDW Std Deviation 44.0 (28.0-62.0) fl RDW Coeff of Dex 13 (11.0-15.0) % Plt Count 248 (150-400) K/uL MPV 11.30 (7.40-12.00) fL Neut % (Auto) 57.4 (48.0-80.0) % Lymph % (Auto) 29.8 (16.0-40.0) % [place] % (Auto) 9.7 (0.0-15.0) % Eos % (Auto) 2.7 (0.0-7.0) % Baso % (Auto) 0.4 (0.0-1.5) % Neut # (Auto) 5.2 (1.4-5.7) K/uL Lymph # (Auto) 2.7 H (0.6-2.4) K/uL [place] # (Auto) 0.9 H (0.0-0.8) K/uL Eos # (Auto) 0.2 (0.0-0.7) K/uL Baso # (Auto) 0.0 (0.0-0.1) K/uL Nucleated RBC % 0.0 /100WBC Nucleated RBCs # 0 K/uL Sodium 141 (136-148) mmol/L Potassium 3.3 L (3.5-5.1) mmol/L Chloride 106 (98-107) mmol/L Carbon Dioxide 27.3 (21.0-32.0) mmol/L BUN 7 (7.0-18.0) mg/dL Creatinine 1.1 (0.8-1.3) mg/dL Est Cr Clr Drug Dosing 73.74 mL/min Estimated GFR (MDRD) > 60.0 ml/min Glucose 104 (74-106) mg/dL POC Glucose (60-110) mg/dL Calcium 8.3 L (8.5-10.1) mg/dL Magnesium 1.7 L (1.8-2.4) mg/dL 11/06/18 Range/Units 06:30 WBC (4.0-11.0) K/uL RBC (4.50-5.90) M/uL Hgb (13.0-17.0) g/dL Hct (38.0-50.0) % MCV (80.0-98.0) fL MCH (27.0-32.0) pg MCHC (31.0-37.0) g/dL RDW Std Deviation (28.0-62.0) fl RDW Coeff of Dex (11.0-15.0) % Plt Count (150-400) K/uL MPV (7.40-12.00) fL Neut % (Auto) (48.0-80.0) % Lymph % (Auto) (16.0-40.0) % [place] % (Auto) (0.0-15.0) % Eos % (Auto) (0.0-7.0) % Baso % (Auto) (0.0-1.5) % Neut # (Auto) (1.4-5.7) K/uL Lymph # (Auto) (0.6-2.4) K/uL [place] # (Auto) (0.0-0.8) K/uL Eos # (Auto) (0.0-0.7) K/uL Baso # (Auto) (0.0-0.1) K/uL Nucleated RBC % /100WBC Nucleated RBCs # K/uL Sodium (136-148) mmol/L Potassium (3.5-5.1) mmol/L Chloride (98-107) mmol/L Carbon Dioxide (21.0-32.0) mmol/L BUN (7.0-18.0) mg/dL Creatinine (0.8-1.3) mg/dL Est Cr Clr Drug Dosing mL/min Estimated GFR (MDRD) ml/min Glucose (74-106) mg/dL POC Glucose 89 (60-110) mg/dL Calcium (8.5-10.1) mg/dL Magnesium (1.8-2.4) mg/dL Andrzej Results Last 24 Hours: Microbiology 11/03/18 22:50 Urine Culture - Final Urine, Clean Catch YEAST Normal Urogenital Isatu Med Orders - Current: Current Medications Atorvastatin Calcium (Lipitor) 40 mg PO DAILY [facility] Enalaprilat (Vasotec Iv) 0.625 mg IVPUSH Q6H [facility] Last Admin: 11/06/18 08:23 Dose: 0.625 mg Heparin Sodium (Porcine) (Heparin Sodium) 5,000 units SUBCUT Q8H [facility] Last Admin: 11/06/18 04:46 Dose: 5,000 units Hydromorphone HCl (Dilaudid) 1 mg IVPUSH Q2H PRN PRN Reason: Pain (severe 7-10) Last Admin: 11/06/18 02:25 Dose: 1 mg Ciprofloxacin/Dextrose 400 mg/ (Premix) 200 mls @ 200 mls/hr IV Q12H [facility] Last Admin: 11/06/18 01:19 Dose: 200 mls/hr Metronidazole 500 mg/ Premix 100 mls @ 100 mls/hr IV QID [facility] Last Admin: 11/06/18 05:38 Dose: 100 mls/hr Potassium Chloride/Dextrose/Sod Cl (D5 1/2 Ns W/ 20 Meq/L Kcl) 1,000 mls @ 125 mls/hr IV ASDIRECTED [facility] Last Admin: 11/05/18 20:52 Dose: 125 mls/hr Potassium Chloride 40 meq/ (Sodium Chloride) 500 mls @ 125 mls/hr IV ONETIME ONE Stop: 11/06/18 12:14 Last Admin: 11/06/18 09:09 Dose: 125 mls/hr Lisinopril (Prinivil) 10 mg PO DAILY [facility] Lorazepam (Ativan) 1 mg IVPUSH Q8H PRN PRN Reason: Anxiety Last Admin: 11/06/18 04:53 Dose: 1 mg Metoprolol Tartrate (Lopressor) 25 mg PO DAILY [facility] Ondansetron HCl (Zofran) 4 mg IVPUSH Q3H PRN PRN Reason: Nausea/Vomiting Last Admin: 11/04/18 06:17 Dose: 4 mg Pantoprazole Sodium (Protonix Iv) 40 mg IV Q24H [facility] Last Admin: 11/05/18 12:37 Dose: 40 mg Phenol/Menthol (Chloraseptic Throat [place]) 1 ml MUCMEM Q2H PRN PRN Reason: Sore Throat Last Admin: 11/05/18 11:34 Dose: 1 ml Promethazine HCl (Phenergan) 25 mg IM Q6H PRN PRN Reason: Nausea/Vomiting Last Admin: 11/04/18 08:00 Dose: 25 mg Discontinued Medications Hydromorphone HCl (Dilaudid) 1 mg IVPUSH ONETIME ONE Stop: 11/03/18 21:41 Last Admin: 11/03/18 22:13 Dose: 1 mg Hydromorphone HCl (Dilaudid) 1 mg IVPUSH ONETIME ONE Stop: 11/04/18 01:09 Last Admin: 11/04/18 01:15 Dose: 1 mg Hydromorphone HCl (Dilaudid) 1 mg IVPUSH Q3H PRN PRN Reason: Pain (severe 7-10) Last Admin: 11/04/18 03:31 Dose: 1 mg Sodium Chloride (Normal Saline) 1,000 mls @ 999 mls/hr IV STAT ONE Stop: 11/03/18 22:37 Last Admin: 11/03/18 22:13 Dose: 999 mls/hr Sodium Chloride (Normal Saline) 1,000 mls @ 125 mls/hr IV STAT [facility] Last Admin: 11/04/18 01:05 Dose: 125 mls/hr Sodium Chloride (Normal Saline) 1,000 mls @ 125 mls/hr IV ASDIRECTED [facility] Last Admin: 11/05/18 00:38 Dose: 125 mls/hr Dextrose/Sodium Chloride (Dextrose 5%-1/2 Ns) 1,000 mls @ 125 mls/hr IV ASDIRECTED [facility] Last Admin: 11/05/18 06:45 Dose: 125 mls/hr Iopamidol (Isovue Multipack-370 (76%)) 100 ml IVPUSH ONETIME ONE Stop: 11/03/18 23:48 Last Admin: 11/03/18 23:48 Dose: 100 ml Ketorolac Tromethamine (Toradol) 30 mg IVPUSH ONETIME ONE Stop: 11/03/18 21:38 Last Admin: 11/03/18 22:13 Dose: 30 mg Metoclopramide HCl (Reglan) 10 mg IV ONETIME ONE Stop: 11/04/18 00:56 Last Admin: 11/04/18 01:05 Dose: 10 mg Ondansetron HCl (Zofran) 4 mg IVPUSH ONETIME ONE Stop: 11/03/18 21:38 Last Admin: 11/03/18 22:13 Dose: 4 mg - Exam General: Alert, Oriented Neck: Supple Lungs: Clear to Auscultation, Normal Respiratory Effort Cardiovascular: Regular Rate, Regular Rhythm, Murmurs GI/Abdominal Exam: Soft, No Distention Skin: Warm, Dry, Intact - Problem List Review Problem List Initiated/Reviewed/Updated: Yes - My Orders Last 24 Hours: My Active Orders 11/06/18 09:00 Metoprolol Tartrate [Lopressor] 25 mg PO DAILY 11/07/18 05:11 BASIC METABOLIC PANEL,BMP [CHEM] AM CBC WITH AUTO DIFF [HEME] AM 11/07/18 09:00 Lisinopril [Prinivil] 10 mg PO DAILY atorvaSTATin [Lipitor] 40 mg PO DAILY - Plan Plan:: 58 yo male admitted for partial small bowel obstruction. NG tube clamped overnight. Will remove NG tube and start clear liquid diet. He is on Ciprofloxacin for UTI and Goldsmith has been replaced.
--- NOTE | 2018-11-06 10:26 | PCM.CONSN ---
<Lili Byrne - Last Filed: 11/06/18 10:27> - General Info Date of Service: 11/06/18 Subjective Update: The patient was admitted for partial bowel obstruction. NG tube was clamped overnight. Patient reports improvement in abdominal pain and denies nausea/ vomiting. He is passing gas but has not had a bowel movement. - Review of Systems General: Reports: No Symptoms HEENT: Reports: No Symptoms Pulmonary: Reports: No Symptoms Cardiovascular: Reports: No Symptoms Gastrointestinal: Reports: Abdominal Pain, Flatus. Denies: Nausea, Vomiting Genitourinary: Reports: No Symptoms Musculoskeletal: Reports: No Symptoms Skin: Reports: No Symptoms Neurological: Reports: No Symptoms Psychiatric: Reports: No Symptoms - Patient Data Vitals - Most Recent: Last Vital Signs Temp 99.3 F 11/06/18 09:03 Pulse 73 11/06/18 09:03 Resp 16 11/06/18 08:00 BP 192/111 H 11/06/18 09:03 Pulse Ox 90 L 11/06/18 08:00 Weight - Most Recent: 101.406 kg I&O - Last 24 Hours: Intake & Output 11/05/18 11/06/18 11/06/18 22:59 06:59 14:59 Intake Total 743 1254 Output Total 1200 1100 Balance -457 154 Lab Results Last 24 Hours: Laboratory Results - last 24 hr 11/05/18 11/05/18 11/05/18 Range/Units 11:51 18:20 23:59 WBC (4.0-11.0) K/uL RBC (4.50-5.90) M/uL Hgb (13.0-17.0) g/dL Hct (38.0-50.0) % MCV (80.0-98.0) fL MCH (27.0-32.0) pg MCHC (31.0-37.0) g/dL RDW Std Deviation (28.0-62.0) fl RDW Coeff of Dex (11.0-15.0) % Plt Count (150-400) K/uL MPV (7.40-12.00) fL Neut % (Auto) (48.0-80.0) % Lymph % (Auto) (16.0-40.0) % [place] % (Auto) (0.0-15.0) % Eos % (Auto) (0.0-7.0) % Baso % (Auto) (0.0-1.5) % Neut # (Auto) (1.4-5.7) K/uL Lymph # (Auto) (0.6-2.4) K/uL [place] # (Auto) (0.0-0.8) K/uL Eos # (Auto) (0.0-0.7) K/uL Baso # (Auto) (0.0-0.1) K/uL Nucleated RBC % /100WBC Nucleated RBCs # K/uL Sodium (136-148) mmol/L Potassium (3.5-5.1) mmol/L Chloride (98-107) mmol/L Carbon Dioxide (21.0-32.0) mmol/L BUN (7.0-18.0) mg/dL Creatinine (0.8-1.3) mg/dL Est Cr Clr Drug Dosing mL/min Estimated GFR (MDRD) ml/min Glucose (74-106) mg/dL POC Glucose 121 H 100 126 H (60-110) mg/dL Calcium (8.5-10.1) mg/dL Magnesium (1.8-2.4) mg/dL 11/06/18 11/06/18 11/06/18 Range/Units 05:46 05:46 05:46 WBC 9.03 (4.0-11.0) K/uL RBC 4.23 L (4.50-5.90) M/uL Hgb 13.1 (13.0-17.0) g/dL Hct 40.1 (38.0-50.0) % MCV 94.8 (80.0-98.0) fL MCH 31.0 (27.0-32.0) pg MCHC 32.7 (31.0-37.0) g/dL RDW Std Deviation 44.0 (28.0-62.0) fl RDW Coeff of Dex 13 (11.0-15.0) % Plt Count 248 (150-400) K/uL MPV 11.30 (7.40-12.00) fL Neut % (Auto) 57.4 (48.0-80.0) % Lymph % (Auto) 29.8 (16.0-40.0) % [place] % (Auto) 9.7 (0.0-15.0) % Eos % (Auto) 2.7 (0.0-7.0) % Baso % (Auto) 0.4 (0.0-1.5) % Neut # (Auto) 5.2 (1.4-5.7) K/uL Lymph # (Auto) 2.7 H (0.6-2.4) K/uL [place] # (Auto) 0.9 H (0.0-0.8) K/uL Eos # (Auto) 0.2 (0.0-0.7) K/uL Baso # (Auto) 0.0 (0.0-0.1) K/uL Nucleated RBC % 0.0 /100WBC Nucleated RBCs # 0 K/uL Sodium 141 (136-148) mmol/L Potassium 3.3 L (3.5-5.1) mmol/L Chloride 106 (98-107) mmol/L Carbon Dioxide 27.3 (21.0-32.0) mmol/L BUN 7 (7.0-18.0) mg/dL Creatinine 1.1 (0.8-1.3) mg/dL Est Cr Clr Drug Dosing 73.74 mL/min Estimated GFR (MDRD) > 60.0 ml/min Glucose 104 (74-106) mg/dL POC Glucose (60-110) mg/dL Calcium 8.3 L (8.5-10.1) mg/dL Magnesium 1.7 L (1.8-2.4) mg/dL 11/06/18 Range/Units 06:30 WBC (4.0-11.0) K/uL RBC (4.50-5.90) M/uL Hgb (13.0-17.0) g/dL Hct (38.0-50.0) % MCV (80.0-98.0) fL MCH (27.0-32.0) pg MCHC (31.0-37.0) g/dL RDW Std Deviation (28.0-62.0) fl RDW Coeff of Dex (11.0-15.0) % Plt Count (150-400) K/uL MPV (7.40-12.00) fL Neut % (Auto) (48.0-80.0) % Lymph % (Auto) (16.0-40.0) % [place] % (Auto) (0.0-15.0) % Eos % (Auto) (0.0-7.0) % Baso % (Auto) (0.0-1.5) % Neut # (Auto) (1.4-5.7) K/uL Lymph # (Auto) (0.6-2.4) K/uL [place] # (Auto) (0.0-0.8) K/uL Eos # (Auto) (0.0-0.7) K/uL Baso # (Auto) (0.0-0.1) K/uL Nucleated RBC % /100WBC Nucleated RBCs # K/uL Sodium (136-148) mmol/L Potassium (3.5-5.1) mmol/L Chloride (98-107) mmol/L Carbon Dioxide (21.0-32.0) mmol/L BUN (7.0-18.0) mg/dL Creatinine (0.8-1.3) mg/dL Est Cr Clr Drug Dosing mL/min Estimated GFR (MDRD) ml/min Glucose (74-106) mg/dL POC Glucose 89 (60-110) mg/dL Calcium (8.5-10.1) mg/dL Magnesium (1.8-2.4) mg/dL Andrzej Results Last 24 Hours: Microbiology 11/03/18 22:50 Urine Culture - Final Urine, Clean Catch YEAST Normal Urogenital Isatu Med Orders - Current: Current Medications Atorvastatin Calcium (Lipitor) 40 mg PO DAILY [facility] Enalaprilat (Vasotec Iv) 0.625 mg IVPUSH Q6H [facility] Last Admin: 11/06/18 08:23 Dose: 0.625 mg Heparin Sodium (Porcine) (Heparin Sodium) 5,000 units SUBCUT Q8H [facility] Last Admin: 11/06/18 04:46 Dose: 5,000 units Hydromorphone HCl (Dilaudid) 1 mg IVPUSH Q2H PRN PRN Reason: Pain (severe 7-10) Last Admin: 11/06/18 10:20 Dose: 1 mg Ciprofloxacin/Dextrose 400 mg/ (Premix) 200 mls @ 200 mls/hr IV Q12H [facility] Last Admin: 11/06/18 01:19 Dose: 200 mls/hr Metronidazole 500 mg/ Premix 100 mls @ 100 mls/hr IV QID [facility] Last Admin: 11/06/18 05:38 Dose: 100 mls/hr Potassium Chloride/Dextrose/Sod Cl (D5 1/2 Ns W/ 20 Meq/L Kcl) 1,000 mls @ 125 mls/hr IV ASDIRECTED [facility] Last Admin: 11/05/18 20:52 Dose: 125 mls/hr Potassium Chloride 40 meq/ (Sodium Chloride) 500 mls @ 125 mls/hr IV ONETIME ONE Stop: 11/06/18 12:14 Last Admin: 11/06/18 09:09 Dose: 125 mls/hr Lisinopril (Prinivil) 10 mg PO DAILY [facility] Lorazepam (Ativan) 1 mg IVPUSH Q8H PRN PRN Reason: Anxiety Last Admin: 11/06/18 04:53 Dose: 1 mg Metoprolol Tartrate (Lopressor) 25 mg PO DAILY [facility] Ondansetron HCl (Zofran) 4 mg IVPUSH Q3H PRN PRN Reason: Nausea/Vomiting Last Admin: 11/04/18 06:17 Dose: 4 mg Pantoprazole Sodium (Protonix Iv) 40 mg IV Q24H [facility] Last Admin: 11/05/18 12:37 Dose: 40 mg Phenol/Menthol (Chloraseptic Throat [place]) 1 ml MUCMEM Q2H PRN PRN Reason: Sore Throat Last Admin: 11/05/18 11:34 Dose: 1 ml Promethazine HCl (Phenergan) 25 mg IM Q6H PRN PRN Reason: Nausea/Vomiting Last Admin: 11/04/18 08:00 Dose: 25 mg Discontinued Medications Hydromorphone HCl (Dilaudid) 1 mg IVPUSH ONETIME ONE Stop: 11/03/18 21:41 Last Admin: 11/03/18 22:13 Dose: 1 mg Hydromorphone HCl (Dilaudid) 1 mg IVPUSH ONETIME ONE Stop: 11/04/18 01:09 Last Admin: 11/04/18 01:15 Dose: 1 mg Hydromorphone HCl (Dilaudid) 1 mg IVPUSH Q3H PRN PRN Reason: Pain (severe 7-10) Last Admin: 11/04/18 03:31 Dose: 1 mg Sodium Chloride (Normal Saline) 1,000 mls @ 999 mls/hr IV STAT ONE Stop: 11/03/18 22:37 Last Admin: 11/03/18 22:13 Dose: 999 mls/hr Sodium Chloride (Normal Saline) 1,000 mls @ 125 mls/hr IV STAT [facility] Last Admin: 11/04/18 01:05 Dose: 125 mls/hr Sodium Chloride (Normal Saline) 1,000 mls @ 125 mls/hr IV ASDIRECTED [facility] Last Admin: 11/05/18 00:38 Dose: 125 mls/hr Dextrose/Sodium Chloride (Dextrose 5%-1/2 Ns) 1,000 mls @ 125 mls/hr IV ASDIRECTED [facility] Last Admin: 11/05/18 06:45 Dose: 125 mls/hr Iopamidol (Isovue Multipack-370 (76%)) 100 ml IVPUSH ONETIME ONE Stop: 11/03/18 23:48 Last Admin: 11/03/18 23:48 Dose: 100 ml Ketorolac Tromethamine (Toradol) 30 mg IVPUSH ONETIME ONE Stop: 11/03/18 21:38 Last Admin: 11/03/18 22:13 Dose: 30 mg Metoclopramide HCl (Reglan) 10 mg IV ONETIME ONE Stop: 11/04/18 00:56 Last Admin: 11/04/18 01:05 Dose: 10 mg Ondansetron HCl (Zofran) 4 mg IVPUSH ONETIME ONE Stop: 11/03/18 21:38 Last Admin: 11/03/18 22:13 Dose: 4 mg - Exam General: Alert, Oriented, Cooperative Lungs: Clear to Auscultation, Normal Respiratory Effort Cardiovascular: Regular Rate, Regular Rhythm GI/Abdominal Exam: Normal Bowel Sounds, Soft, Tender (mildly tender mid abdomen) Extremities: No Pedal Edema Skin: Warm, Dry, Intact Neurological: No New Focal Deficit Psy/Mental Status: Alert, Normal Affect, Normal Mood Consult PN Assessment/Plan Procedures: Procedures COMPLETE CBC W/AUTO DIFF WBC (09/27/18) COMPREHEN METABOLIC PANEL (09/27/18) EMERGENCY DEPT VISIT (09/27/18) EMERGENCY DEPT VISIT (08/10/18) HYDRATE IV INFUSION ADD-ON (09/27/18) PROTHROMBIN TIME (09/27/18) ROUTINE VENIPUNCTURE (09/27/18) THER/PROPH/DIAG IV INF INIT (09/27/18) URINALYSIS AUTO W/SCOPE (09/27/18) URINE CULTURE/COLONY COUNT (09/27/18) Problem List Initiated/Reviewed/Updated: Yes Plan: 1. Partial SBO- may remove NG tube, can start with ice chips and clear liquid diet, medicate for pain and nausea/vomiting, fluid resuscitation. No need for surgery at this time. 2. Gallbladder stranding- US showed cholelithiasis without evidence of cholecystitis, no wbc 3. Ventral hernia-No evidence of incarceration. No surgery at this time. 4. UTI: likely secondary to chronic indwelling catheter. Treatment per primary team Will continue to monitor patient. If patient declines clinically will need transfer give his co-morbidities. <Precious Cristina - Last Filed: 11/06/18 13:09> - Patient Data Vitals - Most Recent: Last Vital Signs Temp 37.4 C 11/06/18 09:03 Pulse 75 11/06/18 11:57 Resp 16 11/06/18 08:00 BP 197/108 H 11/06/18 11:57 Pulse Ox 96 11/06/18 12:00 I&O - Last 24 Hours: Intake & Output 11/05/18 11/06/18 11/06/18 22:59 06:59 14:59 Intake Total 743 1254 Output Total 1200 1100 Balance -457 154 Lab Results Last 24 Hours: Laboratory Results - last 24 hr 11/05/18 11/05/18 11/06/18 Range/Units 18:20 23:59 05:46 WBC 9.03 (4.0-11.0) K/uL RBC 4.23 L (4.50-5.90) M/uL Hgb 13.1 (13.0-17.0) g/dL Hct 40.1 (38.0-50.0) % MCV 94.8 (80.0-98.0) fL MCH 31.0 (27.0-32.0) pg MCHC 32.7 (31.0-37.0) g/dL RDW Std Deviation 44.0 (28.0-62.0) fl RDW Coeff of Dex 13 (11.0-15.0) % Plt Count 248 (150-400) K/uL MPV 11.30 (7.40-12.00) fL Neut % (Auto) 57.4 (48.0-80.0) % Lymph % (Auto) 29.8 (16.0-40.0) % [place] % (Auto) 9.7 (0.0-15.0) % Eos % (Auto) 2.7 (0.0-7.0) % Baso % (Auto) 0.4 (0.0-1.5) % Neut # (Auto) 5.2 (1.4-5.7) K/uL Lymph # (Auto) 2.7 H (0.6-2.4) K/uL [place] # (Auto) 0.9 H (0.0-0.8) K/uL Eos # (Auto) 0.2 (0.0-0.7) K/uL Baso # (Auto) 0.0 (0.0-0.1) K/uL Nucleated RBC % 0.0 /100WBC Nucleated RBCs # 0 K/uL Sodium (136-148) mmol/L Potassium (3.5-5.1) mmol/L Chloride (98-107) mmol/L Carbon Dioxide (21.0-32.0) mmol/L BUN (7.0-18.0) mg/dL Creatinine (0.8-1.3) mg/dL Est Cr Clr Drug Dosing mL/min Estimated GFR (MDRD) ml/min Glucose (74-106) mg/dL POC Glucose 100 126 H (60-110) mg/dL Calcium (8.5-10.1) mg/dL Magnesium (1.8-2.4) mg/dL 11/06/18 11/06/18 11/06/18 Range/Units 05:46 05:46 06:30 WBC (4.0-11.0) K/uL RBC (4.50-5.90) M/uL Hgb (13.0-17.0) g/dL Hct (38.0-50.0) % MCV (80.0-98.0) fL MCH (27.0-32.0) pg MCHC (31.0-37.0) g/dL RDW Std Deviation (28.0-62.0) fl RDW Coeff of Dex (11.0-15.0) % Plt Count (150-400) K/uL MPV (7.40-12.00) fL Neut % (Auto) (48.0-80.0) % Lymph % (Auto) (16.0-40.0) % [place] % (Auto) (0.0-15.0) % Eos % (Auto) (0.0-7.0) % Baso % (Auto) (0.0-1.5) % Neut # (Auto) (1.4-5.7) K/uL Lymph # (Auto) (0.6-2.4) K/uL [place] # (Auto) (0.0-0.8) K/uL Eos # (Auto) (0.0-0.7) K/uL Baso # (Auto) (0.0-0.1) K/uL Nucleated RBC % /100WBC Nucleated RBCs # K/uL Sodium 141 (136-148) mmol/L Potassium 3.3 L (3.5-5.1) mmol/L Chloride 106 (98-107) mmol/L Carbon Dioxide 27.3 (21.0-32.0) mmol/L BUN 7 (7.0-18.0) mg/dL Creatinine 1.1 (0.8-1.3) mg/dL Est Cr Clr Drug Dosing 73.74 mL/min Estimated GFR (MDRD) > 60.0 ml/min Glucose 104 (74-106) mg/dL POC Glucose 89 (60-110) mg/dL Calcium 8.3 L (8.5-10.1) mg/dL Magnesium 1.7 L (1.8-2.4) mg/dL 11/06/18 Range/Units 11:53 WBC (4.0-11.0) K/uL RBC (4.50-5.90) M/uL Hgb (13.0-17.0) g/dL Hct (38.0-50.0) % MCV (80.0-98.0) fL MCH (27.0-32.0) pg MCHC (31.0-37.0) g/dL RDW Std Deviation (28.0-62.0) fl RDW Coeff of Dex (11.0-15.0) % Plt Count (150-400) K/uL MPV (7.40-12.00) fL Neut % (Auto) (48.0-80.0) % Lymph % (Auto) (16.0-40.0) % [place] % (Auto) (0.0-15.0) % Eos % (Auto) (0.0-7.0) % Baso % (Auto) (0.0-1.5) % Neut # (Auto) (1.4-5.7) K/uL Lymph # (Auto) (0.6-2.4) K/uL [place] # (Auto) (0.0-0.8) K/uL Eos # (Auto) (0.0-0.7) K/uL Baso # (Auto) (0.0-0.1) K/uL Nucleated RBC % /100WBC Nucleated RBCs # K/uL Sodium (136-148) mmol/L Potassium (3.5-5.1) mmol/L Chloride (98-107) mmol/L Carbon Dioxide (21.0-32.0) mmol/L BUN (7.0-18.0) mg/dL Creatinine (0.8-1.3) mg/dL Est Cr Clr Drug Dosing mL/min Estimated GFR (MDRD) ml/min Glucose (74-106) mg/dL POC Glucose 91 (60-110) mg/dL Calcium (8.5-10.1) mg/dL Magnesium (1.8-2.4) mg/dL Andrzej Results Last 24 Hours: Microbiology 11/03/18 22:50 Urine Culture - Final Urine, Clean Catch YEAST Normal Urogenital Isatu Med Orders - Current: Current Medications Atorvastatin Calcium (Lipitor) 40 mg PO DAILY [facility] Enalaprilat (Vasotec Iv) 0.625 mg IVPUSH Q6H [facility] Last Admin: 11/06/18 08:23 Dose: 0.625 mg Heparin Sodium (Porcine) (Heparin Sodium) 5,000 units SUBCUT Q8H [facility] Last Admin: 11/06/18 12:58 Dose: 5,000 units Hydromorphone HCl (Dilaudid) 1 mg IVPUSH Q2H PRN PRN Reason: Pain (severe 7-10) Last Admin: 11/06/18 10:20 Dose: 1 mg Ciprofloxacin/Dextrose 400 mg/ (Premix) 200 mls @ 200 mls/hr IV Q12H [facility] Last Admin: 11/06/18 01:19 Dose: 200 mls/hr Metronidazole 500 mg/ Premix 100 mls @ 100 mls/hr IV QID [facility] Last Admin: 11/06/18 12:48 Dose: 100 mls/hr Potassium Chloride/Dextrose/Sod Cl (D5 1/2 Ns W/ 20 Meq/L Kcl) 1,000 mls @ 125 mls/hr IV ASDIRECTED [facility] Last Admin: 11/05/18 20:52 Dose: 125 mls/hr Lisinopril (Prinivil) 10 mg PO DAILY [facility] Lorazepam (Ativan) 1 mg IVPUSH Q8H PRN PRN Reason: Anxiety Last Admin: 11/06/18 04:53 Dose: 1 mg Metoprolol Tartrate (Lopressor) 25 mg PO DAILY [facility] Last Admin: 11/06/18 11:57 Dose: 25 mg Ondansetron HCl (Zofran) 4 mg IVPUSH Q3H PRN PRN Reason: Nausea/Vomiting Last Admin: 11/04/18 06:17 Dose: 4 mg Pantoprazole Sodium (Protonix Iv) 40 mg IV Q24H [facility] Last Admin: 11/06/18 12:58 Dose: 40 mg Phenol/Menthol (Chloraseptic Throat [place]) 1 ml MUCMEM Q2H PRN PRN Reason: Sore Throat Last Admin: 11/05/18 11:34 Dose: 1 ml Promethazine HCl (Phenergan) 25 mg IM Q6H PRN PRN Reason: Nausea/Vomiting Last Admin: 11/04/18 08:00 Dose: 25 mg Discontinued Medications Hydromorphone HCl (Dilaudid) 1 mg IVPUSH ONETIME ONE Stop: 11/03/18 21:41 Last Admin: 11/03/18 22:13 Dose: 1 mg Hydromorphone HCl (Dilaudid) 1 mg IVPUSH ONETIME ONE Stop: 11/04/18 01:09 Last Admin: 11/04/18 01:15 Dose: 1 mg Hydromorphone HCl (Dilaudid) 1 mg IVPUSH Q3H PRN PRN Reason: Pain (severe 7-10) Last Admin: 11/04/18 03:31 Dose: 1 mg Sodium Chloride (Normal Saline) 1,000 mls @ 999 mls/hr IV STAT ONE Stop: 11/03/18 22:37 Last Admin: 11/03/18 22:13 Dose: 999 mls/hr Sodium Chloride (Normal Saline) 1,000 mls @ 125 mls/hr IV STAT [facility] Last Admin: 11/04/18 01:05 Dose: 125 mls/hr Sodium Chloride (Normal Saline) 1,000 mls @ 125 mls/hr IV ASDIRECTED [facility] Last Admin: 11/05/18 00:38 Dose: 125 mls/hr Dextrose/Sodium Chloride (Dextrose 5%-1/2 Ns) 1,000 mls @ 125 mls/hr IV ASDIRECTED [facility] Last Admin: 11/05/18 06:45 Dose: 125 mls/hr Potassium Chloride 40 meq/ (Sodium Chloride) 500 mls @ 125 mls/hr IV ONETIME ONE Stop: 11/06/18 12:14 Last Admin: 11/06/18 09:09 Dose: 125 mls/hr Iopamidol (Isovue Multipack-370 (76%)) 100 ml IVPUSH ONETIME ONE Stop: 11/03/18 23:48 Last Admin: 11/03/18 23:48 Dose: 100 ml Ketorolac Tromethamine (Toradol) 30 mg IVPUSH ONETIME ONE Stop: 11/03/18 21:38 Last Admin: 11/03/18 22:13 Dose: 30 mg Metoclopramide HCl (Reglan) 10 mg IV ONETIME ONE Stop: 11/04/18 00:56 Last Admin: 11/04/18 01:05 Dose: 10 mg Ondansetron HCl (Zofran) 4 mg IVPUSH ONETIME ONE Stop: 11/03/18 21:38 Last Admin: 11/03/18 22:13 Dose: 4 mg Consult PN Assessment/Plan Procedures: Procedures COMPLETE CBC W/AUTO DIFF WBC (09/27/18) COMPREHEN METABOLIC PANEL (09/27/18) EMERGENCY DEPT VISIT (09/27/18) EMERGENCY DEPT VISIT (08/10/18) HYDRATE IV INFUSION ADD-ON (09/27/18) PROTHROMBIN TIME (09/27/18) ROUTINE VENIPUNCTURE (09/27/18) THER/PROPH/DIAG IV INF INIT (09/27/18) URINALYSIS AUTO W/SCOPE (09/27/18) URINE CULTURE/COLONY COUNT (09/27/18) Problem List Initiated/Reviewed/Updated: Yes Plan: Patient seen by myself this afternoon. Tolerating clears. Ok to advance diet as tolerated. No need for surgery at this time. Will sign off, however patient can follow up with me or PCP in clinic for follow up.
[2018-11-06] MEDS: Metoprolol Tartrate 25 MG Tab PO SCH (11:57)
[2018-11-06] MEDS: Pantoprazole 40 MG Vial IV SCH (12:58)
[2018-11-06] MEDS: D5 1/2 NS w/ 20 mEq/L KCl 1,000 ML IV SCH ×2 (15:48→23:39)
[2018-11-06] MEDS: Promethazine 25 MG/ML SDV IM PRN (16:55)
[2018-11-06] MEDS: Ondansetron 4 MG/2 ML SDV IVPUSH PRN (21:44)
[2018-11-06] MEDS ORDERED: Docusate Sodium 100 MG Cap PO PRN (23:26)
[2018-11-07] MEDS: HYDROmorphone 1 MG/ML Syringe IVPUSH PRN ×6 (00:29→20:32)
[2018-11-07] MEDS: Enalaprilat 1.25 MG/ML SDV IVPUSH SCH (01:57)
[2018-11-07] MEDS: Ciprofloxacin in D5W 400 MG in Premix Bag 1 BAG IV SCH ×4 (01:58→14:04)
[2018-11-07] MEDS: Heparin Sodium 5,000 Units/ML Vial SUBCUT SCH ×3 (05:06→20:32)
[2018-11-07] MEDS: metroNIDAZOLE/Normal Saline 500 MG in Premix Bag 1 BAG IV SCH ×4 (05:06→23:26)
[2018-11-07 05:53] LABS: CHLORIDE,CL 105 mmol/L (98-107); SODIUM,NA 140 mmol/L (136-148)
[2018-11-07] MEDS: atorvaSTATin 40 MG Tab PO SCH (08:47)
[2018-11-07] MEDS: Metoprolol Tartrate 25 MG Tab PO SCH (08:55)
[2018-11-07] MEDS: Lisinopril 10 MG Tab PO SCH (08:56)
[2018-11-07] MEDS: Ondansetron 4 MG/2 ML SDV IVPUSH PRN ×2 (09:09→20:32)
--- NOTE | 2018-11-07 10:24 | PCM.PN ---
- General Info Date of Service: 11/07/18 Admission Dx/Problem (Free Text): Admission Diagnosis/Problem Admission Diagnosis/Problem Partial bowel obstruction Subjective Update: Sitting up in the chair, not feeling well. Continues to be nauseated, drank CL yesterday tolerated for short period of time but then started having nausea. No chest pain or SOB. Functional Status: Reports: Ambulating. Denies: Pain Controlled, Tolerating Diet - Review of Systems General: Reports: No Symptoms. Denies: Fever, Weakness, Fatigue HEENT: Denies: Headaches, Sore Throat, Visual Changes Pulmonary: Reports: No Symptoms. Denies: Shortness of Breath Cardiovascular: Reports: No Symptoms. Denies: Chest Pain Gastrointestinal: Reports: Abdominal Pain, Constipation, Nausea, Vomiting. Denies: Flatus Genitourinary: Reports: No Symptoms Musculoskeletal: Reports: No Symptoms Skin: Reports: No Symptoms Neurological: Reports: No Symptoms Psychiatric: Reports: No Symptoms - Patient Data Vitals - Most Recent: Last Vital Signs Temp 98.2 F 11/07/18 09:00 Pulse 65 11/07/18 08:55 Resp 18 11/07/18 09:00 BP 149/94 H 11/07/18 09:00 Pulse Ox 92 L 11/07/18 09:00 Weight - Most Recent: 101.406 kg I&O - Last 24 Hours: Intake & Output 11/06/18 11/07/18 11/07/18 22:59 06:59 14:59 Intake Total 820 100 Output Total 1300 800 Balance -480 -700 Lab Results Last 24 Hours: Laboratory Results - last 24 hr 11/06/18 11/06/18 11/07/18 Range/Units 11:53 16:22 05:00 WBC 7.92 (4.0-11.0) K/uL RBC 4.39 L (4.50-5.90) M/uL Hgb 13.5 (13.0-17.0) g/dL Hct 41.0 (38.0-50.0) % MCV 93.4 (80.0-98.0) fL MCH 30.8 (27.0-32.0) pg MCHC 32.9 (31.0-37.0) g/dL RDW Std Deviation 42.5 (28.0-62.0) fl RDW Coeff of Dex 13 (11.0-15.0) % Plt Count 242 (150-400) K/uL MPV 11.20 (7.40-12.00) fL Neut % (Auto) 59.7 (48.0-80.0) % Lymph % (Auto) 26.3 (16.0-40.0) % [place] % (Auto) 10.6 (0.0-15.0) % Eos % (Auto) 3.0 (0.0-7.0) % Baso % (Auto) 0.4 (0.0-1.5) % Neut # (Auto) 4.7 (1.4-5.7) K/uL Lymph # (Auto) 2.1 (0.6-2.4) K/uL [place] # (Auto) 0.8 (0.0-0.8) K/uL Eos # (Auto) 0.2 (0.0-0.7) K/uL Baso # (Auto) 0.0 (0.0-0.1) K/uL Nucleated RBC % 0.0 /100WBC Nucleated RBCs # 0 K/uL Sodium (136-148) mmol/L Potassium (3.5-5.1) mmol/L Chloride (98-107) mmol/L Carbon Dioxide (21.0-32.0) mmol/L BUN (7.0-18.0) mg/dL Creatinine (0.8-1.3) mg/dL Est Cr Clr Drug Dosing mL/min Estimated GFR (MDRD) ml/min Glucose (74-106) mg/dL POC Glucose 91 121 H (60-110) mg/dL Calcium (8.5-10.1) mg/dL 11/07/18 11/07/18 Range/Units 05:00 06:20 WBC (4.0-11.0) K/uL RBC (4.50-5.90) M/uL Hgb (13.0-17.0) g/dL Hct (38.0-50.0) % MCV (80.0-98.0) fL MCH (27.0-32.0) pg MCHC (31.0-37.0) g/dL RDW Std Deviation (28.0-62.0) fl RDW Coeff of Dex (11.0-15.0) % Plt Count (150-400) K/uL MPV (7.40-12.00) fL Neut % (Auto) (48.0-80.0) % Lymph % (Auto) (16.0-40.0) % [place] % (Auto) (0.0-15.0) % Eos % (Auto) (0.0-7.0) % Baso % (Auto) (0.0-1.5) % Neut # (Auto) (1.4-5.7) K/uL Lymph # (Auto) (0.6-2.4) K/uL [place] # (Auto) (0.0-0.8) K/uL Eos # (Auto) (0.0-0.7) K/uL Baso # (Auto) (0.0-0.1) K/uL Nucleated RBC % /100WBC Nucleated RBCs # K/uL Sodium 140 (136-148) mmol/L Potassium 3.4 L (3.5-5.1) mmol/L Chloride 105 (98-107) mmol/L Carbon Dioxide 26.2 (21.0-32.0) mmol/L BUN 7 (7.0-18.0) mg/dL Creatinine 1.2 (0.8-1.3) mg/dL Est Cr Clr Drug Dosing 67.59 mL/min Estimated GFR (MDRD) > 60.0 ml/min Glucose 109 H (74-106) mg/dL POC Glucose 101 (60-110) mg/dL Calcium 8.9 (8.5-10.1) mg/dL Med Orders - Current: Current Medications Atorvastatin Calcium (Lipitor) 40 mg PO DAILY [facility] Last Admin: 11/07/18 08:47 Dose: 40 mg Docusate Sodium (Colace) 100 mg PO BID PRN PRN Reason: Constipation Last Admin: 11/06/18 23:38 Dose: 100 mg Heparin Sodium (Porcine) (Heparin Sodium) 5,000 units SUBCUT Q8H [facility] Last Admin: 11/07/18 05:06 Dose: 5,000 units Hydromorphone HCl (Dilaudid) 1 mg IVPUSH Q2H PRN PRN Reason: Pain (severe 7-10) Last Admin: 11/07/18 05:07 Dose: 1 mg Ciprofloxacin/Dextrose 400 mg/ (Premix) 200 mls @ 200 mls/hr IV Q12H [facility] Last Admin: 11/07/18 01:58 Dose: 200 mls/hr Metronidazole 500 mg/ Premix 100 mls @ 100 mls/hr IV QID [facility] Last Admin: 11/07/18 05:06 Dose: 100 mls/hr Potassium Chloride/Dextrose/Sod Cl (D5 1/2 Ns W/ 20 Meq/L Kcl) 1,000 mls @ 125 mls/hr IV ASDIRECTED [facility] Last Admin: 11/06/18 23:39 Dose: 125 mls/hr Lisinopril (Prinivil) 10 mg PO DAILY [facility] Last Admin: 11/07/18 08:56 Dose: 10 mg Lorazepam (Ativan) 1 mg IVPUSH Q8H PRN PRN Reason: Anxiety Last Admin: 11/06/18 04:53 Dose: 1 mg Metoprolol Tartrate (Lopressor) 25 mg PO DAILY [facility] Last Admin: 11/07/18 08:55 Dose: 25 mg Ondansetron HCl (Zofran) 4 mg IVPUSH Q3H PRN PRN Reason: Nausea/Vomiting Last Admin: 11/07/18 09:09 Dose: 4 mg Pantoprazole Sodium (Protonix Iv) 40 mg IV Q24H [facility] Last Admin: 11/06/18 12:58 Dose: 40 mg Phenol/Menthol (Chloraseptic Throat [place]) 1 ml MUCMEM Q2H PRN PRN Reason: Sore Throat Last Admin: 11/05/18 11:34 Dose: 1 ml Promethazine HCl (Phenergan) 25 mg IM Q6H PRN PRN Reason: Nausea/Vomiting Last Admin: 11/06/18 16:55 Dose: 25 mg Discontinued Medications Enalaprilat (Vasotec Iv) 0.625 mg IVPUSH Q6H [facility] Last Admin: 11/07/18 01:57 Dose: 0.625 mg Hydromorphone HCl (Dilaudid) 1 mg IVPUSH ONETIME ONE Stop: 11/03/18 21:41 Last Admin: 11/03/18 22:13 Dose: 1 mg Hydromorphone HCl (Dilaudid) 1 mg IVPUSH ONETIME ONE Stop: 11/04/18 01:09 Last Admin: 11/04/18 01:15 Dose: 1 mg Hydromorphone HCl (Dilaudid) 1 mg IVPUSH Q3H PRN PRN Reason: Pain (severe 7-10) Last Admin: 11/04/18 03:31 Dose: 1 mg Sodium Chloride (Normal Saline) 1,000 mls @ 999 mls/hr IV STAT ONE Stop: 11/03/18 22:37 Last Admin: 11/03/18 22:13 Dose: 999 mls/hr Sodium Chloride (Normal Saline) 1,000 mls @ 125 mls/hr IV STAT [facility] Last Admin: 11/04/18 01:05 Dose: 125 mls/hr Sodium Chloride (Normal Saline) 1,000 mls @ 125 mls/hr IV ASDIRECTED [facility] Last Admin: 11/05/18 00:38 Dose: 125 mls/hr Dextrose/Sodium Chloride (Dextrose 5%-1/2 Ns) 1,000 mls @ 125 mls/hr IV ASDIRECTED [facility] Last Admin: 11/05/18 06:45 Dose: 125 mls/hr Potassium Chloride 40 meq/ (Sodium Chloride) 500 mls @ 125 mls/hr IV ONETIME ONE Stop: 11/06/18 12:14 Last Admin: 11/06/18 09:09 Dose: 125 mls/hr Iopamidol (Isovue Multipack-370 (76%)) 100 ml IVPUSH ONETIME ONE Stop: 11/03/18 23:48 Last Admin: 11/03/18 23:48 Dose: 100 ml Ketorolac Tromethamine (Toradol) 30 mg IVPUSH ONETIME ONE Stop: 11/03/18 21:38 Last Admin: 11/03/18 22:13 Dose: 30 mg Metoclopramide HCl (Reglan) 10 mg IV ONETIME ONE Stop: 11/04/18 00:56 Last Admin: 11/04/18 01:05 Dose: 10 mg Ondansetron HCl (Zofran) 4 mg IVPUSH ONETIME ONE Stop: 11/03/18 21:38 Last Admin: 11/03/18 22:13 Dose: 4 mg - Exam General: Alert, Oriented, Cooperative Neck: Supple Lungs: Clear to Auscultation, Normal Respiratory Effort Cardiovascular: Regular Rate, Regular Rhythm GI/Abdominal Exam: Distended, Tender. No: Normal Bowel Sounds (high pitched to LLQ) (Male) Exam: Other (chronic indwelling velazquez) Extremities: Normal Inspection, Normal Range of Motion, Non-Tender, No Pedal Edema Neurological: No New Focal Deficit Psy/Mental Status: Alert, Normal Affect, Normal Mood - Problem List & Annotations (1) Bowel obstruction SNOMED Code(s): 17561273 Code(s): K56.609 - UNSP INTESTNL OBST, UNSP TO PARTIAL VERSUS COMPLETE OBST Status: Acute Current Visit: Yes Qualifiers: Intestinal obstruction type: unspecified Intestinal obstruction extent: unspecified extent Qualified Code(s): K56.609 - Unspecified intestinal obstruction, unspecified as to partial versus complete obstruction (2) UTI (urinary tract infection) SNOMED Code(s): 05479638 Code(s): N39.0 - URINARY TRACT INFECTION, SITE NOT SPECIFIED Status: Acute Current Visit: Yes Qualifiers: Urinary tract infection type: site unspecified Hematuria presence: without hematuria Qualified Code(s): N39.0 - Urinary tract infection, site not specified (3) Urinary retention SNOMED Code(s): 825975772 Code(s): R33.9 - RETENTION OF URINE, UNSPECIFIED Status: Chronic Current Visit: Yes (4) Chronic indwelling Velazquez catheter SNOMED Code(s): 669267864 Code(s): Z96.0 - PRESENCE OF UROGENITAL IMPLANTS Status: Chronic Current Visit: Yes - Problem List Review Problem List Initiated/Reviewed/Updated: Yes - My Orders Last 24 Hours: My Active Orders 11/06/18 10:02 Nasogastric Orogastric Tube Removal [OM.PC] Routine 11/06/18 Lunch Clear Liquid Diet [DIET] 11/07/18 09:45 Abdomen 2V AP Flat Upright [CR] Urgent - Plan Plan:: 58 yo male admitted for partial small bowel obstruction. 1. SBO: NG removed yesterday, started on CL. Did not tolerated overnight, more nauseated and vomited x 1. Obtained flat and upright this morning, which revealed persistent dilated loops of bowel. SPoke with Dr Cristina, she recommended small bowel follow through with barium today. She will see him. 2. UTI: Continue Ciprofloxacin, Velazquez was replaced on admission. VTE prophylaxis: Heparin Dispo: 1-3 days pending improvement
--- NOTE | 2018-11-07 10:39 | CR ---
EXAMINATION: Abdomen HISTORY: Nausea COMPARISON: 11/05/2018 TECHNIQUE: AP and upright views of the abdomen FINDINGS: No definitive free air under the diaphragm. There are persistent loops of dilated small bowel measuring up to 4.2 cm. No organomegaly. No abnormal calcifications. Minimal gas noted within the rectum. Bone island noted within the right ilium. IMPRESSION: 1. Persistent dilated loops of small bowel, likely representing a bowel obstruction.
[2018-11-07] MEDS: D5 1/2 NS w/ 20 mEq/L KCl 1,000 ML IV SCH ×2 (11:30→23:27)
[2018-11-07] MEDS: Pantoprazole 40 MG Vial IV SCH (12:50)
--- NOTE | 2018-11-07 17:34 | PCM.CONSN ---
- General Info Date of Service: 11/07/18 Subjective Update: Patient is a 58-year-old male who presented to the emergency room on Saturday night November 03 with abdominal pain. He had a CT scan performed that showed borderline dilated fluid-filled small bowel segments with a transition point in the right abdomen. There was wall thickening in a few right abdominal small bowel segments distal to the transition point with associated mild mesenteric edema. He had several small fat containing ventral hernias. There was also a short segment of decompressed small bowel extending into the ventral hernia without associated obstruction. The impression by the radiologist was findings consistent with a partial or early small bowel obstruction with a transition point in the right abdomen. He had an NG placed after admission. After placement of the NG, he had high output for the next 24 hours. After that the NG output decreased and became more clear appearing. He started passing some gas. The NG was clamped overnight on Saturday. He tolerated this with no new symptoms. His abdomen was flat soft and nontender. The NG was removed morning and his diet was advanced to clears. I signed off at that time. That evening he developed nausea and vomited once. This morning he felt more distended and nauseated. He had one more episode of emesis. An abdominal x-ray was performed that showed dilated loops of small bowel. A small bowel follow- through with barium was started. He tolerated the barium and has not had any episodes of emesis. He does complain of discomfort around the center of his abdomen. His last xray was at 4 hours and does not show any contrast in the large intestine yet. He is frustrated with this process. He states that "I don't have time for this. I need to be able to work." Functional Status: Reports: Pain Controlled - Review of Systems General: Reports: No Symptoms Pulmonary: Reports: No Symptoms Cardiovascular: Reports: No Symptoms Gastrointestinal: Denies: [place] Psychiatric: Reports: Mood Lability - Patient Data Vitals - Most Recent: Last Vital Signs Temp 37.0 C 11/07/18 15:00 Pulse 60 11/07/18 15:00 Resp 16 11/07/18 15:00 BP 144/91 H 11/07/18 15:00 Pulse Ox 93 L 11/07/18 15:00 Weight - Most Recent: 101.406 kg I&O - Last 24 Hours: Intake & Output 11/07/18 11/07/18 11/07/18 06:59 14:59 22:59 Intake Total 100 200 Output Total 800 Balance -700 200 Lab Results Last 24 Hours: Laboratory Results - last 24 hr 11/06/18 11/07/18 11/07/18 Range/Units 16:22 05:00 05:00 WBC 7.92 (4.0-11.0) K/uL RBC 4.39 L (4.50-5.90) M/uL Hgb 13.5 (13.0-17.0) g/dL Hct 41.0 (38.0-50.0) % MCV 93.4 (80.0-98.0) fL MCH 30.8 (27.0-32.0) pg MCHC 32.9 (31.0-37.0) g/dL RDW Std Deviation 42.5 (28.0-62.0) fl RDW Coeff of Dex 13 (11.0-15.0) % Plt Count 242 (150-400) K/uL MPV 11.20 (7.40-12.00) fL Neut % (Auto) 59.7 (48.0-80.0) % Lymph % (Auto) 26.3 (16.0-40.0) % [place] % (Auto) 10.6 (0.0-15.0) % Eos % (Auto) 3.0 (0.0-7.0) % Baso % (Auto) 0.4 (0.0-1.5) % Neut # (Auto) 4.7 (1.4-5.7) K/uL Lymph # (Auto) 2.1 (0.6-2.4) K/uL [place] # (Auto) 0.8 (0.0-0.8) K/uL Eos # (Auto) 0.2 (0.0-0.7) K/uL Baso # (Auto) 0.0 (0.0-0.1) K/uL Nucleated RBC % 0.0 /100WBC Nucleated RBCs # 0 K/uL Sodium 140 (136-148) mmol/L Potassium 3.4 L (3.5-5.1) mmol/L Chloride 105 (98-107) mmol/L Carbon Dioxide 26.2 (21.0-32.0) mmol/L BUN 7 (7.0-18.0) mg/dL Creatinine 1.2 (0.8-1.3) mg/dL Est Cr Clr Drug Dosing 67.59 mL/min Estimated GFR (MDRD) > 60.0 ml/min Glucose 109 H (74-106) mg/dL POC Glucose 121 H (60-110) mg/dL Calcium 8.9 (8.5-10.1) mg/dL 11/07/18 Range/Units 06:20 WBC (4.0-11.0) K/uL RBC (4.50-5.90) M/uL Hgb (13.0-17.0) g/dL Hct (38.0-50.0) % MCV (80.0-98.0) fL MCH (27.0-32.0) pg MCHC (31.0-37.0) g/dL RDW Std Deviation (28.0-62.0) fl RDW Coeff of Dex (11.0-15.0) % Plt Count (150-400) K/uL MPV (7.40-12.00) fL Neut % (Auto) (48.0-80.0) % Lymph % (Auto) (16.0-40.0) % [place] % (Auto) (0.0-15.0) % Eos % (Auto) (0.0-7.0) % Baso % (Auto) (0.0-1.5) % Neut # (Auto) (1.4-5.7) K/uL Lymph # (Auto) (0.6-2.4) K/uL [place] # (Auto) (0.0-0.8) K/uL Eos # (Auto) (0.0-0.7) K/uL Baso # (Auto) (0.0-0.1) K/uL Nucleated RBC % /100WBC Nucleated RBCs # K/uL Sodium (136-148) mmol/L Potassium (3.5-5.1) mmol/L Chloride (98-107) mmol/L Carbon Dioxide (21.0-32.0) mmol/L BUN (7.0-18.0) mg/dL Creatinine (0.8-1.3) mg/dL Est Cr Clr Drug Dosing mL/min Estimated GFR (MDRD) ml/min Glucose (74-106) mg/dL POC Glucose 101 (60-110) mg/dL Calcium (8.5-10.1) mg/dL Med Orders - Current: Current Medications Atorvastatin Calcium (Lipitor) 40 mg PO DAILY [facility] Last Admin: 11/07/18 08:47 Dose: 40 mg Docusate Sodium (Colace) 100 mg PO BID PRN PRN Reason: Constipation Last Admin: 11/06/18 23:38 Dose: 100 mg Heparin Sodium (Porcine) (Heparin Sodium) 5,000 units SUBCUT Q8H [facility] Last Admin: 11/07/18 12:51 Dose: 5,000 units Hydromorphone HCl (Dilaudid) 1 mg IVPUSH Q2H PRN PRN Reason: Pain (severe 7-10) Last Admin: 11/07/18 16:02 Dose: 1 mg Ciprofloxacin/Dextrose 400 mg/ (Premix) 200 mls @ 200 mls/hr IV Q12H [facility] Last Admin: 11/07/18 14:04 Dose: 200 mls/hr Metronidazole 500 mg/ Premix 100 mls @ 100 mls/hr IV QID [facility] Last Admin: 11/07/18 12:49 Dose: 100 mls/hr Potassium Chloride/Dextrose/Sod Cl (D5 1/2 Ns W/ 20 Meq/L Kcl) 1,000 mls @ 125 mls/hr IV ASDIRECTED [facility] Last Admin: 11/07/18 11:30 Dose: 125 mls/hr Lisinopril (Prinivil) 10 mg PO DAILY [facility] Last Admin: 11/07/18 08:56 Dose: 10 mg Lorazepam (Ativan) 1 mg IVPUSH Q8H PRN PRN Reason: Anxiety Last Admin: 11/06/18 04:53 Dose: 1 mg Metoprolol Tartrate (Lopressor) 25 mg PO DAILY [facility] Last Admin: 11/07/18 08:55 Dose: 25 mg Ondansetron HCl (Zofran) 4 mg IVPUSH Q3H PRN PRN Reason: Nausea/Vomiting Last Admin: 11/07/18 09:09 Dose: 4 mg Pantoprazole Sodium (Protonix Iv) 40 mg IV Q24H [facility] Last Admin: 11/07/18 12:50 Dose: 40 mg Phenol/Menthol (Chloraseptic Throat [place]) 1 ml MUCMEM Q2H PRN PRN Reason: Sore Throat Last Admin: 11/05/18 11:34 Dose: 1 ml Promethazine HCl (Phenergan) 25 mg IM Q6H PRN PRN Reason: Nausea/Vomiting Last Admin: 11/06/18 16:55 Dose: 25 mg Discontinued Medications Enalaprilat (Vasotec Iv) 0.625 mg IVPUSH Q6H [facility] Last Admin: 11/07/18 01:57 Dose: 0.625 mg Hydromorphone HCl (Dilaudid) 1 mg IVPUSH ONETIME ONE Stop: 11/03/18 21:41 Last Admin: 11/03/18 22:13 Dose: 1 mg Hydromorphone HCl (Dilaudid) 1 mg IVPUSH ONETIME ONE Stop: 11/04/18 01:09 Last Admin: 11/04/18 01:15 Dose: 1 mg Hydromorphone HCl (Dilaudid) 1 mg IVPUSH Q3H PRN PRN Reason: Pain (severe 7-10) Last Admin: 11/04/18 03:31 Dose: 1 mg Sodium Chloride (Normal Saline) 1,000 mls @ 999 mls/hr IV STAT ONE Stop: 11/03/18 22:37 Last Admin: 11/03/18 22:13 Dose: 999 mls/hr Sodium Chloride (Normal Saline) 1,000 mls @ 125 mls/hr IV STAT [facility] Last Admin: 11/04/18 01:05 Dose: 125 mls/hr Sodium Chloride (Normal Saline) 1,000 mls @ 125 mls/hr IV ASDIRECTED [facility] Last Admin: 11/05/18 00:38 Dose: 125 mls/hr Dextrose/Sodium Chloride (Dextrose 5%-1/2 Ns) 1,000 mls @ 125 mls/hr IV ASDIRECTED [facility] Last Admin: 11/05/18 06:45 Dose: 125 mls/hr Potassium Chloride 40 meq/ (Sodium Chloride) 500 mls @ 125 mls/hr IV ONETIME ONE Stop: 11/06/18 12:14 Last Admin: 11/06/18 09:09 Dose: 125 mls/hr Iopamidol (Isovue Multipack-370 (76%)) 100 ml IVPUSH ONETIME ONE Stop: 11/03/18 23:48 Last Admin: 11/03/18 23:48 Dose: 100 ml Ketorolac Tromethamine (Toradol) 30 mg IVPUSH ONETIME ONE Stop: 11/03/18 21:38 Last Admin: 11/03/18 22:13 Dose: 30 mg Metoclopramide HCl (Reglan) 10 mg IV ONETIME ONE Stop: 11/04/18 00:56 Last Admin: 11/04/18 01:05 Dose: 10 mg Ondansetron HCl (Zofran) 4 mg IVPUSH ONETIME ONE Stop: 11/03/18 21:38 Last Admin: 11/03/18 22:13 Dose: 4 mg - Exam General: Alert, Oriented, Moderate Distress GI/Abdominal Exam: Soft, Non-Tender, Distended. No: Guarding, Rigid, Rebound Consult PN Assessment/Plan Procedures: Procedures COMPLETE CBC W/AUTO DIFF WBC (09/27/18) COMPREHEN METABOLIC PANEL (09/27/18) EMERGENCY DEPT VISIT (09/27/18) EMERGENCY DEPT VISIT (08/10/18) HYDRATE IV INFUSION ADD-ON (09/27/18) PROTHROMBIN TIME (09/27/18) ROUTINE VENIPUNCTURE (09/27/18) THER/PROPH/DIAG IV INF INIT (09/27/18) URINALYSIS AUTO W/SCOPE (09/27/18) URINE CULTURE/COLONY COUNT (09/27/18) (1) Bowel obstruction SNOMED Code(s): 56948376 Code(s): K56.609 - UNSP INTESTNL OBST, UNSP TO PARTIAL VERSUS COMPLETE OBST Current Visit: Yes Qualifiers: Intestinal obstruction type: unspecified Intestinal obstruction extent: unspecified extent Qualified Code(s): K56.609 - Unspecified intestinal obstruction, unspecified as to partial versus complete obstruction Problem List Initiated/Reviewed/Updated: Yes Plan: I had a long discussion with the patient. I explained that we may have advanced his diet too soon which is why he is back to feeling distended. I discussed transferring him for further workup given that I cannot tell if this is due to adhesive disease versus some sort of inflammatory bowel disease. This upset him greatly. He is frustrated at the disease process itself. After long discussion with him, I agreed that we would continue to watch him overnight. He should be kept nothing by mouth with IV fluids. If he starts vomiting overnight and NG will need to be placed. If he develops severe abdominal pain he will need a repeat CT scan to rule out any other acute process. His abdomen right now is distended but does not feel acute. I do not see any signs of incarcerated or strangulated hernia. If he feels better in the morning we can discuss possibly advancing his diet again. If nothing has changed or his clinical status declines , he may need to be transferred to a larger hospital for possible surgical management and/or evaluation by the GI physician. Please call with any questions or concerns.
--- NOTE | 2018-11-07 21:25 | CR ---
INDICATION: Small bowel obstruction. TECHNIQUE: Small bowel follow through performed without the radiologist present. COMPARISON: CT 11/03/2018. Abdominal radiograph 11/07/2018 FINDINGS AND IMPRESSION: 6 images submitted. Multiple dilated gas-filled loops of small bowel identified. The 8 hour film demonstrates contrast distending the stomach. Several proximal small bowel loops are contrast opacified. However, the distal small bowel loops and the colon are not contrast opacified. Findings are consistent with persistent small-bowel obstruction. Dictated by Anders Leblanc MD @ 11/07/2018 9:24:54 PM Dictated by: Anders Leblanc MD @ 11/07/2018 21:25:09 (Electronically Signed)
[2018-11-08] MEDS: Ciprofloxacin in D5W 400 MG in Premix Bag 1 BAG IV SCH ×2 (00:54)
[2018-11-08] MEDS: HYDROmorphone 1 MG/ML Syringe IVPUSH PRN ×3 (00:54→11:05)
[2018-11-08] MEDS: Heparin Sodium 5,000 Units/ML Vial SUBCUT SCH (05:11)
[2018-11-08] MEDS: metroNIDAZOLE/Normal Saline 500 MG in Premix Bag 1 BAG IV SCH (05:12)
[2018-11-08 06:44] LABS: CHLORIDE,CL 106 mmol/L (98-107); SODIUM,NA 140 mmol/L (136-148)
--- NOTE | 2018-11-08 07:15 | CR ---
Indication: Small-bowel follow-through follow-up. Technique: Abdomen 1 view Comparison: Abdomen 11/07/2018 Findings/Impression: Single-view of the abdomen shows multiple dilated loops of small bowel with contrast filling most of the small bowel although not clearly past the transition point. Findings are consistent with small bowel obstruction. Dictated by Lewis Murhpy MD @ Nov 08 2018 7:13AM Signed by Dr. Lewis Murphy @ Nov 08 2018 7:15AM
--- NOTE | 2018-11-08 09:30 | PCM.CONS ---
H&P History of Present Illness - General Date of Service: 11/08/18 Admit Problem/Dx: Admission Diagnosis/Problem Admission Diagnosis/Problem Partial bowel obstruction Source of Information: Patient History Limitations: Reports: No Limitations - History of Present Illness Initial Comments - Free Text/Narative: Patient still feels distended and uncomfortable. He did not vomit overnight. Vitals stable overnight. Labs normal this morning. No flatus or BM. Middle Abdomen Pain Score (Numeric/FACES): 10 - Related Data Allergies/Adverse Reactions: Allergies Allergy/AdvReac Type Severity Reaction Status Date / Time No Known Allergies Allergy Verified 11/03/18 21:33 Home Medications: Home Meds Metoprolol Tartrate 25 mg PO DAILY 09/27/18 [History] Pantoprazole [ProTONIX] 40 mg PO DAILY 09/27/18 [History] atorvaSTATin [Lipitor] 40 mg PO DAILY 09/27/18 [History] Ledipasvir/Sofosbuvir [Harvoni 90-400 mg Tablet] 90 - 400 mg PO DAILY 11/03/18 [ History] Lisinopril 10 mg PO DAILY 11/03/18 [History] Past Medical History HEENT History: Reports: Impaired Vision Cardiovascular History: Reports: Hypertension, Stents, Other (See Below) Other Cardiovascular History: DE Respiratory History: Reports: None Gastrointestinal History: Reports: None, Hepatitis Other Gastrointestinal History: Hepatitis C on Harvoni Genitourinary History: Reports: Retention, Urinary Musculoskeletal History: Reports: None Neurological History: Reports: None Psychiatric History: Reports: None Endocrine/Metabolic History: Reports: None Hematologic History: Reports: None Oncologic (Cancer) History: Reports: None - Infectious Disease History Infectious Disease History: Reports: Hepatitis C, Measles - Past Surgical History HEENT Surgical History: Reports: None GI Surgical History: Reports: Appendectomy, Hernia Repair/Other Male Surgical History: Reports: None Social & Family History - Family History Family Medical History: Noncontributory - Tobacco Use Smoking Status *Q: Light Tobacco Smoker Years of Tobacco use: 41 Packs/Tins Daily: 0.5 Second Hand Smoke Exposure: Yes - Caffeine Use Caffeine Use: Reports: None - Recreational Drug Use Recreational Drug Use: No H&P Review of Systems - Review of Systems: Review Of Systems: ROS reveals no pertinent complaints other than HPI. Exam - Exam Exam: See Below - Vital Signs Vital Signs: Last Vital Signs Temp 37.0 C 11/08/18 08:00 Pulse 62 11/08/18 08:00 Resp 18 11/08/18 08:00 BP 159/96 H 11/08/18 08:00 Pulse Ox 93 L 11/08/18 08:00 Weight: 101.406 kg - Exam General: Alert, Oriented Lungs: Clear to Auscultation, Normal Respiratory Effort Cardiovascular: Regular Rate, Regular Rhythm GI/Abdominal Exam: Soft, Non-Tender, Distended. No: Guarding, Rigid, Rebound - Patient Data Lab Results Last 24 hrs: Laboratory Results - last 24 hr 11/07/18 11/07/18 11/08/18 Range/Units 18:19 23:59 06:11 WBC (4.0-11.0) K/uL RBC (4.50-5.90) M/uL Hgb (13.0-17.0) g/dL Hct (38.0-50.0) % MCV (80.0-98.0) fL MCH (27.0-32.0) pg MCHC (31.0-37.0) g/dL RDW Std Deviation (28.0-62.0) fl RDW Coeff of Dex (11.0-15.0) % Plt Count (150-400) K/uL MPV (7.40-12.00) fL Neut % (Auto) (48.0-80.0) % Lymph % (Auto) (16.0-40.0) % [place] % (Auto) (0.0-15.0) % Eos % (Auto) (0.0-7.0) % Baso % (Auto) (0.0-1.5) % Neut # (Auto) (1.4-5.7) K/uL Lymph # (Auto) (0.6-2.4) K/uL [place] # (Auto) (0.0-0.8) K/uL Eos # (Auto) (0.0-0.7) K/uL Baso # (Auto) (0.0-0.1) K/uL Nucleated RBC % /100WBC Nucleated RBCs # K/uL Sodium (136-148) mmol/L Potassium (3.5-5.1) mmol/L Chloride (98-107) mmol/L Carbon Dioxide (21.0-32.0) mmol/L BUN (7.0-18.0) mg/dL Creatinine (0.8-1.3) mg/dL Est Cr Clr Drug Dosing mL/min Estimated GFR (MDRD) ml/min Glucose (74-106) mg/dL POC Glucose 120 H 94 83 (60-110) mg/dL Calcium (8.5-10.1) mg/dL Magnesium (1.8-2.4) mg/dL 11/08/18 11/08/18 Range/Units 06:12 06:12 WBC 7.11 (4.0-11.0) K/uL RBC 4.37 L (4.50-5.90) M/uL Hgb 13.5 (13.0-17.0) g/dL Hct 40.7 (38.0-50.0) % MCV 93.1 (80.0-98.0) fL MCH 30.9 (27.0-32.0) pg MCHC 33.2 (31.0-37.0) g/dL RDW Std Deviation 42.3 (28.0-62.0) fl RDW Coeff of Dex 13 (11.0-15.0) % Plt Count 222 (150-400) K/uL MPV 11.00 (7.40-12.00) fL Neut % (Auto) 54.4 (48.0-80.0) % Lymph % (Auto) 31.2 (16.0-40.0) % [place] % (Auto) 11.3 (0.0-15.0) % Eos % (Auto) 2.7 (0.0-7.0) % Baso % (Auto) 0.4 (0.0-1.5) % Neut # (Auto) 3.9 (1.4-5.7) K/uL Lymph # (Auto) 2.2 (0.6-2.4) K/uL [place] # (Auto) 0.8 (0.0-0.8) K/uL Eos # (Auto) 0.2 (0.0-0.7) K/uL Baso # (Auto) 0.0 (0.0-0.1) K/uL Nucleated RBC % 0.0 /100WBC Nucleated RBCs # 0 K/uL Sodium 140 (136-148) mmol/L Potassium 3.8 (3.5-5.1) mmol/L Chloride 106 (98-107) mmol/L Carbon Dioxide 25.7 (21.0-32.0) mmol/L BUN 6 L (7.0-18.0) mg/dL Creatinine 1.2 (0.8-1.3) mg/dL Est Cr Clr Drug Dosing 67.59 mL/min Estimated GFR (MDRD) > 60.0 ml/min Glucose 97 (74-106) mg/dL POC Glucose (60-110) mg/dL Calcium 8.8 (8.5-10.1) mg/dL Magnesium 1.8 (1.8-2.4) mg/dL Result Diagrams: 11/08/18 06:12 11/08/18 06:12 Consult PN Assessment/Plan Procedures: Procedures COMPLETE CBC W/AUTO DIFF WBC (09/27/18) COMPREHEN METABOLIC PANEL (09/27/18) EMERGENCY DEPT VISIT (09/27/18) EMERGENCY DEPT VISIT (08/10/18) HYDRATE IV INFUSION ADD-ON (09/27/18) PROTHROMBIN TIME (09/27/18) ROUTINE VENIPUNCTURE (09/27/18) THER/PROPH/DIAG IV INF INIT (09/27/18) URINALYSIS AUTO W/SCOPE (09/27/18) URINE CULTURE/COLONY COUNT (09/27/18) (1) Bowel obstruction SNOMED Code(s): 38626781 Code(s): K56.609 - UNSP INTESTNL OBST, UNSP TO PARTIAL VERSUS COMPLETE OBST Current Visit: Yes Qualifiers: Intestinal obstruction type: unspecified Intestinal obstruction extent: unspecified extent Qualified Code(s): K56.609 - Unspecified intestinal obstruction, unspecified as to partial versus complete obstruction Problem List Initiated/Reviewed/Updated: Yes My Orders Last 24 Hours: My Active Orders 11/08/18 09:06 Nasogastric Tube Management [Gastrointestinal Tube Mgmt] [RC] ASDIRECTED Nasogastric Orogastric Tube Insertion [OM.PC] Routine Plan: Small bowel follow through with barium yesterday afternnon showed no progression of contrast past the RLQ. Follow up XR this am showed no movement of contrast into the colon. Given these findings, I think the patient needs surgery. With his medical comorbidities, I think this needs to be performed in a hospital with more resources. I called [facility] and he was accepted for transfer by the surgeon. Will place NG prior to transfer.
[2018-11-08] MEDS: D5 1/2 NS w/ 20 mEq/L KCl 1,000 ML IV SCH (09:47)
--- NOTE | 2018-11-08 10:15 | PCM.DCSUM1 ---
Discharge Summary - Discharge Data Discharge Disposition: Home, Self-Care 01 Condition: Fair - Patient Summary/Data Consults: Consultations 11/04/18 09:09 Consult to Physician [CONS] Routine - Discharge Plan Home Medications: Home Meds Metoprolol Tartrate 25 mg PO DAILY 09/27/18 [History] Pantoprazole [ProTONIX] 40 mg PO DAILY 09/27/18 [History] atorvaSTATin [Lipitor] 40 mg PO DAILY 09/27/18 [History] Ledipasvir/Sofosbuvir [Harvoni 90-400 mg Tablet] 90 - 400 mg PO DAILY 11/03/18 [ History] Lisinopril 10 mg PO DAILY 11/03/18 [History] Referrals: PCP,None [Primary Care Provider] - - Patient Data Vitals - Most Recent: Last Vital Signs Temp 37.0 C 11/08/18 08:00 Pulse 62 11/08/18 08:00 Resp 18 11/08/18 08:00 BP 159/96 H 11/08/18 08:00 Pulse Ox 93 L 11/08/18 08:00 Weight - Most Recent: 101.406 kg I&O - Last 24 hours: Intake & Output 11/07/18 11/08/18 11/08/18 22:59 06:59 14:59 Intake Total 0 1000 Output Total 1150 Balance -1150 1000 Lab Results - Last 24 hrs: Laboratory Results - last 24 hr 11/07/18 11/07/18 11/08/18 Range/Units 18:19 23:59 06:11 WBC (4.0-11.0) K/uL RBC (4.50-5.90) M/uL Hgb (13.0-17.0) g/dL Hct (38.0-50.0) % MCV (80.0-98.0) fL MCH (27.0-32.0) pg MCHC (31.0-37.0) g/dL RDW Std Deviation (28.0-62.0) fl RDW Coeff of Dex (11.0-15.0) % Plt Count (150-400) K/uL MPV (7.40-12.00) fL Neut % (Auto) (48.0-80.0) % Lymph % (Auto) (16.0-40.0) % [place] % (Auto) (0.0-15.0) % Eos % (Auto) (0.0-7.0) % Baso % (Auto) (0.0-1.5) % Neut # (Auto) (1.4-5.7) K/uL Lymph # (Auto) (0.6-2.4) K/uL [place] # (Auto) (0.0-0.8) K/uL Eos # (Auto) (0.0-0.7) K/uL Baso # (Auto) (0.0-0.1) K/uL Nucleated RBC % /100WBC Nucleated RBCs # K/uL Sodium (136-148) mmol/L Potassium (3.5-5.1) mmol/L Chloride (98-107) mmol/L Carbon Dioxide (21.0-32.0) mmol/L BUN (7.0-18.0) mg/dL Creatinine (0.8-1.3) mg/dL Est Cr Clr Drug Dosing mL/min Estimated GFR (MDRD) ml/min Glucose (74-106) mg/dL POC Glucose 120 H 94 83 (60-110) mg/dL Calcium (8.5-10.1) mg/dL Magnesium (1.8-2.4) mg/dL 11/08/18 11/08/18 Range/Units 06:12 06:12 WBC 7.11 (4.0-11.0) K/uL RBC 4.37 L (4.50-5.90) M/uL Hgb 13.5 (13.0-17.0) g/dL Hct 40.7 (38.0-50.0) % MCV 93.1 (80.0-98.0) fL MCH 30.9 (27.0-32.0) pg MCHC 33.2 (31.0-37.0) g/dL RDW Std Deviation 42.3 (28.0-62.0) fl RDW Coeff of Dex 13 (11.0-15.0) % Plt Count 222 (150-400) K/uL MPV 11.00 (7.40-12.00) fL Neut % (Auto) 54.4 (48.0-80.0) % Lymph % (Auto) 31.2 (16.0-40.0) % [place] % (Auto) 11.3 (0.0-15.0) % Eos % (Auto) 2.7 (0.0-7.0) % Baso % (Auto) 0.4 (0.0-1.5) % Neut # (Auto) 3.9 (1.4-5.7) K/uL Lymph # (Auto) 2.2 (0.6-2.4) K/uL [place] # (Auto) 0.8 (0.0-0.8) K/uL Eos # (Auto) 0.2 (0.0-0.7) K/uL Baso # (Auto) 0.0 (0.0-0.1) K/uL Nucleated RBC % 0.0 /100WBC Nucleated RBCs # 0 K/uL Sodium 140 (136-148) mmol/L Potassium 3.8 (3.5-5.1) mmol/L Chloride 106 (98-107) mmol/L Carbon Dioxide 25.7 (21.0-32.0) mmol/L BUN 6 L (7.0-18.0) mg/dL Creatinine 1.2 (0.8-1.3) mg/dL Est Cr Clr Drug Dosing 67.59 mL/min Estimated GFR (MDRD) > 60.0 ml/min Glucose 97 (74-106) mg/dL POC Glucose (60-110) mg/dL Calcium 8.8 (8.5-10.1) mg/dL Magnesium 1.8 (1.8-2.4) mg/dL Med Orders - Current: Current Medications Atorvastatin Calcium (Lipitor) 40 mg PO DAILY [facility] Last Admin: 11/07/18 08:47 Dose: 40 mg Docusate Sodium (Colace) 100 mg PO BID PRN PRN Reason: Constipation Last Admin: 11/06/18 23:38 Dose: 100 mg Heparin Sodium (Porcine) (Heparin Sodium) 5,000 units SUBCUT Q8H [facility] Last Admin: 11/08/18 05:11 Dose: 5,000 units Hydromorphone HCl (Dilaudid) 1 mg IVPUSH Q2H PRN PRN Reason: Pain (severe 7-10) Last Admin: 11/08/18 08:02 Dose: 1 mg Ciprofloxacin/Dextrose 400 mg/ (Premix) 200 mls @ 200 mls/hr IV Q12H [facility] Last Admin: 11/08/18 00:54 Dose: 200 mls/hr Metronidazole 500 mg/ Premix 100 mls @ 100 mls/hr IV QID [facility] Last Admin: 11/08/18 05:12 Dose: 100 mls/hr Potassium Chloride/Dextrose/Sod Cl (D5 1/2 Ns W/ 20 Meq/L Kcl) 1,000 mls @ 125 mls/hr IV ASDIRECTED [facility] Last Admin: 11/08/18 09:47 Dose: 125 mls/hr Lisinopril (Prinivil) 10 mg PO DAILY [facility] Last Admin: 11/07/18 08:56 Dose: 10 mg Lorazepam (Ativan) 1 mg IVPUSH Q8H PRN PRN Reason: Anxiety Last Admin: 11/06/18 04:53 Dose: 1 mg Metoprolol Tartrate (Lopressor) 25 mg PO DAILY [facility] Last Admin: 11/07/18 08:55 Dose: 25 mg Ondansetron HCl (Zofran) 4 mg IVPUSH Q3H PRN PRN Reason: Nausea/Vomiting Last Admin: 11/07/18 20:32 Dose: 4 mg Pantoprazole Sodium (Protonix Iv) 40 mg IV Q24H [facility] Last Admin: 11/07/18 12:50 Dose: 40 mg Phenol/Menthol (Chloraseptic Throat [place]) 1 ml MUCMEM Q2H PRN PRN Reason: Sore Throat Last Admin: 11/05/18 11:34 Dose: 1 ml Promethazine HCl (Phenergan) 25 mg IM Q6H PRN PRN Reason: Nausea/Vomiting Last Admin: 11/06/18 16:55 Dose: 25 mg Discontinued Medications Enalaprilat (Vasotec Iv) 0.625 mg IVPUSH Q6H [facility] Last Admin: 11/07/18 01:57 Dose: 0.625 mg Hydromorphone HCl (Dilaudid) 1 mg IVPUSH ONETIME ONE Stop: 11/03/18 21:41 Last Admin: 11/03/18 22:13 Dose: 1 mg Hydromorphone HCl (Dilaudid) 1 mg IVPUSH ONETIME ONE Stop: 11/04/18 01:09 Last Admin: 11/04/18 01:15 Dose: 1 mg Hydromorphone HCl (Dilaudid) 1 mg IVPUSH Q3H PRN PRN Reason: Pain (severe 7-10) Last Admin: 11/04/18 03:31 Dose: 1 mg Sodium Chloride (Normal Saline) 1,000 mls @ 999 mls/hr IV STAT ONE Stop: 11/03/18 22:37 Last Admin: 11/03/18 22:13 Dose: 999 mls/hr Sodium Chloride (Normal Saline) 1,000 mls @ 125 mls/hr IV STAT [facility] Last Admin: 11/04/18 01:05 Dose: 125 mls/hr Sodium Chloride (Normal Saline) 1,000 mls @ 125 mls/hr IV ASDIRECTED [facility] Last Admin: 11/05/18 00:38 Dose: 125 mls/hr Dextrose/Sodium Chloride (Dextrose 5%-1/2 Ns) 1,000 mls @ 125 mls/hr IV ASDIRECTED [facility] Last Admin: 11/05/18 06:45 Dose: 125 mls/hr Potassium Chloride 40 meq/ (Sodium Chloride) 500 mls @ 125 mls/hr IV ONETIME ONE Stop: 11/06/18 12:14 Last Admin: 11/06/18 09:09 Dose: 125 mls/hr Iopamidol (Isovue Multipack-370 (76%)) 100 ml IVPUSH ONETIME ONE Stop: 11/03/18 23:48 Last Admin: 11/03/18 23:48 Dose: 100 ml Ketorolac Tromethamine (Toradol) 30 mg IVPUSH ONETIME ONE Stop: 11/03/18 21:38 Last Admin: 11/03/18 22:13 Dose: 30 mg Metoclopramide HCl (Reglan) 10 mg IV ONETIME ONE Stop: 11/04/18 00:56 Last Admin: 11/04/18 01:05 Dose: 10 mg Ondansetron HCl (Zofran) 4 mg IVPUSH ONETIME ONE Stop: 11/03/18 21:38 Last Admin: 11/03/18 22:13 Dose: 4 mg
--- NOTE | 2018-11-08 10:29 | CR ---
INDICATION: Confirm NG tube placement. TECHNIQUE: Supine portable AP image of the abdomen. COMPARISON: 11/08/2018. FINDINGS: NG tube tip in the gastric fundus. Contrast throughout dilated small bowel, as on the previous exam and consistent with small bowel obstruction. Contrast material in the stomach, which is nondistended. IMPRESSION: 1. NG tube in this gastric fundus. 2. Small-bowel obstruction, as demonstrated previously. Dictated by Jatinder Lay MD @ Nov 08 2018 10:26AM Signed by Dr. Jatinder Lay @ Nov 08 2018 10:28AM
[2018-11-08] MEDS: Ondansetron 4 MG/2 ML SDV IVPUSH PRN (11:05)
[2018-11-08] MEDS: atorvaSTATin 40 MG Tab PO SCH (11:50)
[2018-11-08] MEDS: Lisinopril 10 MG Tab PO SCH (11:50)
[2018-11-08] MEDS: Metoprolol Tartrate 25 MG Tab PO SCH (11:51)
== END 2018-11-08 11:10 | disposition home or self-care (01) | DRG 466 ==
LOC: MW.ED 20:58 → MW.MS 11-04 01:05 → OBSVTOIN 11-05 10:32 → MW.MS 11-05 13:11
PROVIDERS: ADMIT Internal Medicine; ATTEND Internal Medicine
PROC: 0D9670Z Drainage of Stomach with Drainage Device, Via Natural or Artificial Opening (ICD-10-PCS; principal; 2018-11-04)
DX: T83.511A Infection and inflammatory reaction due to indwelling urethral catheter, initial encounter (principal); K56.600 Partial intestinal obstruction, unspecified as to cause; N39.0 Urinary tract infection, site not specified; Y84.6 Urinary catheterization as the cause of abnormal reaction of the patient, or of later complication, without mention of misadventure at the time of the procedure; I25.10 Atherosclerotic heart disease of native coronary artery without angina pectoris; K52.9 Noninfective gastroenteritis and colitis, unspecified; H54.7 Unspecified visual loss; I10 Essential (primary) hypertension; B19.20 Unspecified viral hepatitis C without hepatic coma; N40.1 Benign prostatic hyperplasia with lower urinary tract symptoms; K43.9 Ventral hernia without obstruction or gangrene; R33.8 Other retention of urine; F17.210 Nicotine dependence, cigarettes, uncomplicated; I25.2 Old myocardial infarction; Z96.0 Presence of urogenital implants; Z79.899 Other long term (current) drug therapy; Z95.5 Presence of coronary angioplasty implant and graft
CPT/HCPCS: 36415; 74018; 74018-26; 74019; 74019-26; 74177; 74177-26; 74250; 74250-26; 76705; 76705-26; 80048; 80053; 81001; 82962; 83690; 83735; 85025; 87086; 93005; 96361; 96365; 96366; 96367; 96372; 96375; 96376; 99284; 99285-25; A9270-GY; C9113; G0378; J0744; J1170; J1644; J1885; J2060; J2405; J2550; J2765; J3480; J3490; J7040; J7042; Q9967